=== PATIENT | male | born 1955 | race Caucasian/White ===

== ENCOUNTER 2018-03-19 09:34 | Outpatient (CLI) | payer OTHER, SELFPAY ==
[2018-03-19 13:17] LABS: Anion Gap 7.2 mmol/L (3-11); BUN 21 mg/dL (7-18); CO2 27.8 mmol/L (21.0-32.0); CREATININE 1.01 mg/dL (0.70-1.30); Calcium 8.9 mg/dL (8.5-10.1); Chloride 107 mmol/L (98-107); Glucose 95 mg/dL (70-100); Potassium 4.9 mmol/L (3.5-5.1); Sodium 142 mmol/L (136-145)
[2018-03-20 09:21] LABS: PSA, Screening 44.2 ng/ml (0-4.5)
== END 2018-03-19 09:54 ==
PROVIDERS: PCP Family Medicine; Visit Provider Family Medicine
DX: N13.8 Other obstructive and reflux uropathy (principal); N40.1 Benign prostatic hyperplasia with lower urinary tract symptoms; Z12.5 Encounter for screening for malignant neoplasm of prostate
CPT/HCPCS: 36415; 80048; 84153; 87086

== ENCOUNTER 2018-03-22 00:32 | Outpatient (CLI) | payer OTHER, SELFPAY ==
--- NOTE | 2018-03-22 08:13 | DI.US_ITS ---
SYMPTOM/DIAGNOSIS: BPH WITH OBSTRUCTIVE SYMPTOMS, ? URINARY OBSTRUCTION, LOWER URINARY TRACT SYMPTOMS, N40.1, BENIGN PROSTATIC HYPERPLASIA, N13.8, OBSTRUCTION , REFLUX RENAL ULTRASOUND: No priors for comparison. The right kidney measures 11.6 cm. long. No renal masses or calculi is identified. There is normal blood flow. There is mild dilatation of the right renal collecting system. This may represent extrarenal pelvis or mild hydronephrosis. The left kidney measures 10.7 cm long. No renal mass, calculus or obstruction is identified. The prevoid urinary bladder volume is 161 cc's. Multiple bladder stones were seen. There is debris seen within the urinary bladder. This may represent infectious material or hemorrhage. The ureteral jets were not visualized during this examination. Post void urinary bladder volume was 60 cc's. The prostate gland is enlarged measuring 171 cc's in volume. IMPRESSION: 1. Anechoic collection in the right renal pelvis. This may represent an extrarenal pelvis or mild hydronephrosis. Parapelvic cysts cannot be excluded. 2. Prostatic hypertrophy. Moderate post void bladder volume. 3. Multiple bladder stones with debris seen within the urinary bladder. This may represent infection or hemorrhage.
== END 2018-03-22 00:52 ==
PROVIDERS: PCP Family Medicine; Visit Provider Family Medicine
DX: N40.1 Benign prostatic hyperplasia with lower urinary tract symptoms (principal); N13.8 Other obstructive and reflux uropathy; N13.30 Unspecified hydronephrosis; R33.9 Retention of urine, unspecified; N21.0 Calculus in bladder
CPT/HCPCS: 76770

== ENCOUNTER 2018-07-04 09:49 | Outpatient (CLI) | payer OTHER, SELFPAY ==
[2018-07-04 10:27] LABS: HCT 30.6 % (40.0-50.0); HGB 10.3 g/dL (13.5-17.5); Mean Corp. HGB Concentration 33.7 g/dL (32.0-36.0); Mean Corpuscular Hemoglobin 31.3 pg (27.0-33.0); Mean Platelet Volume 9.7 fL (8.0-11.0); Platelet Count 494 x1000/uL (130-400); RBC 3.29 m/cumm (4.50-6.00); RBC Distribution Width 15.6 % (11.8-14.1); White Blood Cell Count 7.62 k/cumm (4.4-10.8)
[2018-07-04 10:43] LABS: ALT 100 U/L (12-78); AST 30 U/L (15-37); Albumin 3.1 g/dL (3.4-5.0); Alkaline Phosphatase 130 U/L (46-116); Anion Gap 13.4 mmol/L (3-11); BUN 18 mg/dL (7-18); Bilirubin, Total 0.3 mg/dL (0.2-1.0); CO2 23.6 mmol/L (21.0-32.0); CREATININE 1.08 mg/dL (0.70-1.30); Calcium 9.6 mg/dL (8.5-10.1); Chloride 104 mmol/L (98-107); Glucose 121 mg/dL (70-100); Potassium 3.3 mmol/L (3.5-5.1); Sodium 141 mmol/L (136-145); Total Protein 7.7 g/dL (6.4-8.2)
[2018-07-04 10:47] LABS: Absolute Lymphocyte Count 1.14 k/cumm (1.2-3.4); Absolute Neutrophil Count 5.11 k/cumm (1.2-6.7); Anisocytosis 1+; Diff Comment Manual Differential
[2018-07-04 10:48] LABS: Polychromasia Present
== END 2018-07-04 10:09 ==
PROVIDERS: PCP Family Medicine; Visit Provider Internal Medicine
DX: C92.00 Acute myeloblastic leukemia, not having achieved remission (principal)
CPT/HCPCS: 36415; 80053; 85025

== ENCOUNTER 2018-08-28 08:02 | Outpatient (CLI) | payer OTHER, SELFPAY ==
--- NOTE | 2018-08-28 13:53 | DI.US_ITS ---
SYMPTOMS/DIAGNOSIS: H/O DVT, NEW CRAMPING IN RIGHT CALF, I82.401, ON BLOOD THINNERS FOR A FEW DAYS RIGHT LOWER EXTREMITY ULTRASOUND: Comparison examinations are 05/11/2009 and 01/25/2010. There is hypoechoic thrombus seen in the right popliteal vein extending into the patient's paired posterior tibialis veins. The common femoral and femoral vein are patent and show normal compression and color flow. The saphenofemoral junction is unremarkable. There is hypoechoic thrombus seen in a superficial vein in the right lower extremity. IMPRESSION: 1. Right lower extremity deep venous thrombus from the popliteal vein extending into the patient's paired posterior tibialis veins. 2. Superficial thrombophlebitis.
== END 2018-08-28 08:22 ==
PROVIDERS: PCP Family Medicine; Visit Provider Internal Medicine
DX: R25.2 Cramp and spasm (principal); I82.431 Acute embolism and thrombosis of right popliteal vein; I82.441 Acute embolism and thrombosis of right tibial vein; I80.01 Phlebitis and thrombophlebitis of superficial vessels of right lower extremity
CPT/HCPCS: 93971

== ENCOUNTER 2018-08-29 01:11 | Outpatient (RCR) | payer OTHER, SELFPAY ==
[2018-08-05] MEDS: Normal Saline Flush 10 ML SYR IVP (10:20)
[2018-08-05] MEDS: Heparin 500 UNITS/5 ML SYRINGE IV (10:20)
[2018-08-05 10:24] LABS: Abs Immature Grans 0.01 k/cumm (0.0-0.09); Absolute Basophil Count 0.01 k/cumm (0.0-0.2); Absolute Eosinophil Count 0.12 k/cumm (0.0-0.7); Absolute Lymphocyte Count 0.36 k/cumm (1.2-3.4); Absolute Monocyte Count 0.04 k/cumm (0.11-0.7); Absolute Neutrophil Count 7.57 k/cumm (1.2-6.7); Basophils % 0.1; Eosinophils % 1.5; HCT 32.9 % (40.0-50.0); Immature Grans % 0.1; Lymphocytes % 4.4; Mean Corp. HGB Concentration 33.4 g/dL (32.0-36.0); Mean Corpuscular Hemoglobin 31.5 pg (27.0-33.0); Mean Corpuscular Volume 94.3 fL (80-95); Mean Platelet Volume 8.9 fL (8.0-11.0); Monocytes % 0.5; Neutrophils % 93.4; Platelet Count 174 x1000/uL (130-400); RBC 3.49 m/cumm (4.50-6.00); RBC Distribution Width 14.3 % (11.8-14.1); White Blood Cell Count 8.11 k/cumm (4.4-10.8)
[2018-08-05 10:40] LABS: ALT 58 U/L (12-78); AST 29 U/L (15-37); Albumin 3.6 g/dL (3.4-5.0); Alkaline Phosphatase 78 U/L (46-116); Anion Gap 11.6 mmol/L (3-11); BUN 34 mg/dL (7-18); CO2 25.4 mmol/L (21.0-32.0); CREATININE 1.22 mg/dL (0.70-1.30); Calcium 9.4 mg/dL (8.5-10.1); Chloride 106 mmol/L (98-107); Estimated GFR 59.99 (mL/min/1.73m2); Glucose 104 mg/dL (70-100); Potassium 3.3 mmol/L (3.5-5.1); Sodium 143 mmol/L (136-145); Total Protein 7.3 g/dL (6.4-8.2)
[2018-08-08] MEDS: Normal Saline Flush 10 ML SYR IVP (10:40)
[2018-08-08] MEDS: Heparin 500 UNITS/5 ML SYRINGE IV (10:40)
[2018-08-08 10:54] LABS: ALT 55 U/L (12-78); AST 30 U/L (15-37); Abs Immature Grans 0.01 k/cumm (0.0-0.09); Absolute Basophil Count 0.03 k/cumm (0.0-0.2); Absolute Lymphocyte Count 0.39 k/cumm (1.2-3.4); Absolute Monocyte Count 0.01 k/cumm (0.11-0.7); Absolute Neutrophil Count 2.02 k/cumm (1.2-6.7); Albumin 3.7 g/dL (3.4-5.0); Alkaline Phosphatase 99 U/L (46-116); Anion Gap 10.2 mmol/L (3-11); BUN 40 mg/dL (7-18); Basophils % 1.2; Bilirubin, Total 0.7 mg/dL (0.2-1.0); CO2 26.8 mmol/L (21.0-32.0); Calcium 9.8 mg/dL (8.5-10.1); Chloride 104 mmol/L (98-107); Eosinophils % 3.9; Estimated GFR 55.75 (mL/min/1.73m2); Glucose 102 mg/dL (70-100); HCT 33.8 % (40.0-50.0); HGB 10.9 g/dL (13.5-17.5); Immature Grans % 0.4; Lymphocytes % 15.2; Mean Corp. HGB Concentration 32.2 g/dL (32.0-36.0); Mean Corpuscular Hemoglobin 30.7 pg (27.0-33.0); Mean Corpuscular Volume 95.2 fL (80-95); Mean Platelet Volume 9.2 fL (8.0-11.0); Monocytes % 0.4; Neutrophils % 78.9; RBC 3.55 m/cumm (4.50-6.00); RBC Distribution Width 14.1 % (11.8-14.1); Sodium 141 mmol/L (136-145); Total Protein 7.6 g/dL (6.4-8.2); White Blood Cell Count 2.56 k/cumm (4.4-10.8)
[2018-08-08 11:40] LABS: Diff Comment PLT Morph Reviewed; Platelet Count 91 x1000/uL (130-400)
[2018-08-12] MEDS: Heparin 500 UNITS/5 ML SYRINGE IV (10:15)
[2018-08-12] MEDS: Normal Saline Flush 10 ML SYR IVP ×2 (10:15→18:59)
[2018-08-12 10:46] LABS: Absolute Basophil Count 0.02 k/cumm (0.0-0.2); Absolute Monocyte Count 0.02 k/cumm (0.11-0.7); HCT 30.4 % (40.0-50.0); HGB 10.1 g/dL (13.5-17.5); Mean Corp. HGB Concentration 33.2 g/dL (32.0-36.0); Mean Corpuscular Hemoglobin 31.2 pg (27.0-33.0); Mean Corpuscular Volume 93.8 fL (80-95); Monocytes % 2.5; RBC 3.24 m/cumm (4.50-6.00); RBC Distribution Width 13.5 % (11.8-14.1)
[2018-08-12 11:04] LABS: ALT 93 U/L (12-78); AST 55 U/L (15-37); Albumin 3.6 g/dL (3.4-5.0); Alkaline Phosphatase 111 U/L (46-116); Anion Gap 9.2 mmol/L (3-11); BUN 39 mg/dL (7-18); Bilirubin, Total 0.4 mg/dL (0.2-1.0); CO2 27.8 mmol/L (21.0-32.0); CREATININE 1.22 mg/dL (0.70-1.30); Chloride 105 mmol/L (98-107); Estimated GFR 59.99 (mL/min/1.73m2); Glucose 107 mg/dL (70-100); Potassium 3.9 mmol/L (3.5-5.1); Sodium 142 mmol/L (136-145); Total Protein 7.6 g/dL (6.4-8.2)
[2018-08-12 11:16] LABS: Absolute Eosinophil Count 0.03 k/cumm (0.0-0.7); Absolute Lymphocyte Count 0.49 k/cumm (1.2-3.4); Atypical Lymphocytes % 7
[2018-08-12 11:17] LABS: Diff Comment Manual Differential; RBC Morphology Normal
[2018-08-12 11:26] LABS: Absolute Neutrophil Count 0.28 k/cumm (1.2-6.7); Platelet Count 7 x1000/uL (130-400); White Blood Cell Count 0.81 k/cumm (4.4-10.8)
[2018-08-12 18:43] VITALS: BP 142/93; PULSE 78; RESP 18; TEMP 37
[2018-08-12 18:54] VITALS: BP 141/95; PULSE 75; RESP 18; TEMP 37
[2018-08-15] MEDS: Normal Saline Flush 10 ML SYR IVP (10:10)
[2018-08-15] MEDS: Heparin 500 UNITS/5 ML SYRINGE IV (10:10)
[2018-08-15 11:16] LABS: ALT 91 U/L (12-78); AST 50 U/L (15-37); Albumin 3.5 g/dL (3.4-5.0); Alkaline Phosphatase 110 U/L (46-116); BUN 35 mg/dL (7-18); Bilirubin, Total 0.3 mg/dL (0.2-1.0); CREATININE 1.11 mg/dL (0.70-1.30); Calcium 9.5 mg/dL (8.5-10.1); Chloride 106 mmol/L (98-107); Glucose 90 mg/dL (70-100); Potassium 3.9 mmol/L (3.5-5.1); Sodium 142 mmol/L (136-145); Total Protein 7.5 g/dL (6.4-8.2)
[2018-08-15 11:43] LABS: HCT 27.6 % (40.0-50.0); HGB 9.2 g/dL (13.5-17.5); Mean Corp. HGB Concentration 33.3 g/dL (32.0-36.0); Mean Corpuscular Hemoglobin 31.4 pg (27.0-33.0); Mean Corpuscular Volume 94.2 fL (80-95); RBC 2.93 m/cumm (4.50-6.00); RBC Distribution Width 13.2 % (11.8-14.1); White Blood Cell Count 0.65 k/cumm (4.4-10.8)
[2018-08-15 11:45] LABS: Absolute Lymphocyte Count 0.64 k/cumm (1.2-3.4); Absolute Monocyte Count 0.01 k/cumm (0.11-0.7); Mean Platelet Volume 10.4 fL (8.0-11.0); Platelet Count 30 x1000/uL (130-400)
[2018-08-15 11:46] LABS: Diff Comment Manual Differential; RBC Morphology Normal
[2018-08-19] MEDS: Normal Saline Flush 10 ML SYR IVP (10:17)
[2018-08-19] MEDS: Heparin 500 UNITS/5 ML SYRINGE IV (10:18)
[2018-08-19 10:33] LABS: HCT 26.2 % (40.0-50.0); HGB 8.9 g/dL (13.5-17.5); Mean Corpuscular Hemoglobin 31.3 pg (27.0-33.0); Mean Corpuscular Volume 92.3 fL (80-95); Mean Platelet Volume 10.1 fL (8.0-11.0); RBC 2.84 m/cumm (4.50-6.00); RBC Distribution Width 12.7 % (11.8-14.1)
[2018-08-19 10:40] LABS: ALT 86 U/L (12-78); AST 45 U/L (15-37); Albumin 3.3 g/dL (3.4-5.0); Alkaline Phosphatase 123 U/L (46-116); Anion Gap 9.7 mmol/L (3-11); BUN 27 mg/dL (7-18); Bilirubin, Total 0.2 mg/dL (0.2-1.0); CO2 27.3 mmol/L (21.0-32.0); CREATININE 1.06 mg/dL (0.70-1.30); Calcium 9.1 mg/dL (8.5-10.1); Chloride 105 mmol/L (98-107); Glucose 113 mg/dL (70-100); Potassium 3.7 mmol/L (3.5-5.1); Sodium 142 mmol/L (136-145); Total Protein 7.6 g/dL (6.4-8.2)
[2018-08-19 11:09] LABS: White Blood Cell Count 1.02 k/cumm (4.4-10.8)
[2018-08-19 11:10] LABS: Platelet Count 39 x1000/uL (130-400)
[2018-08-19 11:12] LABS: Absolute Neutrophil Count 0.01 k/cumm (1.2-6.7)
[2018-08-19 11:13] LABS: Absolute Monocyte Count 0.31 k/cumm (0.11-0.7); Atypical Lymphocytes % 1; Diff Comment Manual Differential; RBC Morphology Normal
[2018-08-22 10:57] LABS: Abs Immature Grans 0.06 k/cumm (0.0-0.09); HCT 24.5 % (40.0-50.0); HGB 8.3 g/dL (13.5-17.5); Mean Corp. HGB Concentration 33.9 g/dL (32.0-36.0); Mean Corpuscular Hemoglobin 31.4 pg (27.0-33.0); Mean Corpuscular Volume 92.8 fL (80-95); Mean Platelet Volume 9.7 fL (8.0-11.0); Platelet Count 138 x1000/uL (130-400); RBC 2.64 m/cumm (4.50-6.00); RBC Distribution Width 13.2 % (11.8-14.1); White Blood Cell Count 2.29 k/cumm (4.4-10.8)
[2018-08-22] MEDS: Heparin 500 UNITS/5 ML SYRINGE IV (10:58)
[2018-08-22] MEDS: Normal Saline Flush 10 ML SYR IVP (10:58)
[2018-08-22 11:26] LABS: ALT 68 U/L (12-78); AST 33 U/L (15-37); Absolute Monocyte Count 1.01 k/cumm (0.11-0.7); Albumin 3.1 g/dL (3.4-5.0); Alkaline Phosphatase 117 U/L (46-116); Anion Gap 8.6 mmol/L (3-11); Atypical Lymphocytes % 1; BUN 26 mg/dL (7-18); Bilirubin, Total 0.2 mg/dL (0.2-1.0); CO2 28.4 mmol/L (21.0-32.0); CREATININE 1.01 mg/dL (0.70-1.30); Calcium 9.4 mg/dL (8.5-10.1); Chloride 104 mmol/L (98-107); Glucose 119 mg/dL (70-100); Potassium 3.8 mmol/L (3.5-5.1); Sodium 141 mmol/L (136-145); Total Protein 7.1 g/dL (6.4-8.2)
[2018-08-22 11:28] LABS: Absolute Neutrophil Count 0.46 k/cumm (1.2-6.7)
[2018-08-22 11:30] LABS: Diff Comment Manual Differential
[2018-08-22 11:31] LABS: Polychromasia Present
[2018-08-26] MEDS: Normal Saline Flush 10 ML SYR IVP (10:32)
[2018-08-26] MEDS: Heparin 500 UNITS/5 ML SYRINGE IV (10:33)
[2018-08-26 10:37] LABS: HCT 26.1 % (40.0-50.0); HGB 8.7 g/dL (13.5-17.5); Mean Corp. HGB Concentration 33.3 g/dL (32.0-36.0); Mean Corpuscular Hemoglobin 31.4 pg (27.0-33.0); Mean Corpuscular Volume 94.2 fL (80-95); Mean Platelet Volume 9.1 fL (8.0-11.0); RBC 2.77 m/cumm (4.50-6.00); RBC Distribution Width 14.4 % (11.8-14.1); White Blood Cell Count 4.94 k/cumm (4.4-10.8)
[2018-08-26 10:49] LABS: ALT 44 U/L (12-78); AST 25 U/L (15-37); Albumin 3.1 g/dL (3.4-5.0); Alkaline Phosphatase 111 U/L (46-116); Anion Gap 11.4 mmol/L (3-11); BUN 25 mg/dL (7-18); Bilirubin, Total 0.2 mg/dL (0.2-1.0); CO2 25.6 mmol/L (21.0-32.0); CREATININE 1.08 mg/dL (0.70-1.30); Calcium 8.7 mg/dL (8.5-10.1); Chloride 104 mmol/L (98-107); Glucose 121 mg/dL (70-100); Potassium 3.8 mmol/L (3.5-5.1); Sodium 141 mmol/L (136-145); Total Protein 7.4 g/dL (6.4-8.2)
[2018-08-26 10:53] LABS: Absolute Lymphocyte Count 1.19 k/cumm (1.2-3.4); Absolute Monocyte Count 1.04 k/cumm (0.11-0.7); Absolute Neutrophil Count 2.72 k/cumm (1.2-6.7); Anisocytosis 1+; Basophilic Stippling Present; Diff Comment Manual Differential; Microcytosis 1+; Platelet Count 261 x1000/uL (130-400); Polychromasia Present
[2018-08-29 10:42] LABS: Abs Immature Grans 0.04 k/cumm (0.0-0.09); Absolute Basophil Count 0.01 k/cumm (0.0-0.2); Absolute Monocyte Count 0.98 k/cumm (0.11-0.7); Absolute Neutrophil Count 2.73 k/cumm (1.2-6.7); Basophils % 0.2; HCT 27.2 % (40.0-50.0); HGB 8.9 g/dL (13.5-17.5); Immature Grans % 0.8; Lymphocytes % 24.2; Mean Corp. HGB Concentration 32.7 g/dL (32.0-36.0); Mean Corpuscular Volume 94.8 fL (80-95); Monocytes % 19.8; Platelet Count 245 x1000/uL (130-400); RBC 2.87 m/cumm (4.50-6.00); RBC Distribution Width 15.3 % (11.8-14.1); White Blood Cell Count 4.96 k/cumm (4.4-10.8)
[2018-08-29] MEDS: Normal Saline Flush 10 ML SYR IVP (11:06)
[2018-08-29] MEDS: Heparin 500 UNITS/5 ML SYRINGE IV (11:06)
== END 2018-08-29 23:59 | disposition home or self-care (01) ==
LOC: INF 01:11
PROVIDERS: PCP Family Medicine; Visit Provider Internal Medicine
DX: C92.00 Acute myeloblastic leukemia, not having achieved remission (principal); Z45.2 Encounter for adjustment and management of vascular access device
CPT/HCPCS: 36430; 36591; 80053; 86850; 86900; 86901; 86945; 85025; P9035

== ENCOUNTER 2018-09-02 02:05 | Outpatient (RCR) | payer OTHER, SELFPAY | END 2018-09-29 23:59 | disposition home or self-care (01) | LOC: INF 02:05 | PROVIDERS: PCP Family Medicine; Visit Provider Internal Medicine | DX: R69 Illness, unspecified (principal) ==

== ENCOUNTER 2018-09-13 01:25 | Outpatient (CLI) | payer OTHER, SELFPAY ==
--- NOTE | 2018-09-13 12:56 | DI.US_ITS ---
SYMPTOMS/DIAGNOSIS: THYROID NODULE, E04.1, FOUND ON PREVIOUS STUDY THYROID ULTRASOUND: The right lobe measures 5.7 x 1.5 x 2.3 cm. The left lobe measures 5.5 x 1.4 x 1.9 cm. At the lower pole of the right lobe of the thyroid, there is a 1.3 x 1.4 x 1.7 cm solid nodule. It shows mildly lobulated borders and heterogeneous echotexture as well as vascularity. A coarse calcification is seen posteriorly. There are also punctate echogenic foci. A 6 mm circumscribed lesion is seen near the upper pole of the right lobe. At the upper pole of the left lobe, there is a mostly cystic, circumscribed lesion with a solid component containing vascularity. IMPRESSION: 1.7 cm heterogeneous nodule at the upper pole of the right lobe of the thyroid. FNA is recommended for further evaluation.
== END 2018-09-13 01:45 ==
PROVIDERS: PCP Family Medicine; Visit Provider Internal Medicine
DX: E04.1 Nontoxic single thyroid nodule (principal)
CPT/HCPCS: 76536

== ENCOUNTER 2018-10-21 00:59 | Outpatient (RCR) | payer OTHER, SELFPAY ==
[2018-09-30] MEDS: Heparin 500 UNITS/5 ML SYRINGE IV (10:05)
[2018-09-30] MEDS: Normal Saline Flush 10 ML SYR IVP (10:05)
[2018-09-30 10:27] LABS: Absolute Eosinophil Count 0.02 k/cumm (0.0-0.7); HCT 35.2 % (40.0-50.0); HGB 11.9 g/dL (13.5-17.5); Mean Corp. HGB Concentration 33.8 g/dL (32.0-36.0); Mean Corpuscular Hemoglobin 31.4 pg (27.0-33.0); Mean Corpuscular Volume 92.9 fL (80-95); Mean Platelet Volume 8.7 fL (8.0-11.0); RBC 3.79 m/cumm (4.50-6.00); RBC Distribution Width 13.7 % (11.8-14.1)
[2018-09-30 10:54] LABS: Absolute Neutrophil Count 0.49 k/cumm (1.2-6.7); Atypical Lymphocytes % 3
[2018-09-30 10:56] LABS: Diff Comment Manual Differential; Platelet Count 57 x1000/uL (130-400); RBC Morphology Normal
[2018-10-03] MEDS: Heparin 500 UNITS/5 ML SYRINGE IV (10:30)
[2018-10-03] MEDS: Normal Saline Flush 10 ML SYR IVP ×2 (10:30→16:30)
[2018-10-03 11:04] LABS: Absolute Monocyte Count 0.01 k/cumm (0.11-0.7); HCT 33.9 % (40.0-50.0); HGB 11.4 g/dL (13.5-17.5); Mean Corp. HGB Concentration 33.6 g/dL (32.0-36.0); Mean Corpuscular Volume 92.1 fL (80-95); RBC 3.68 m/cumm (4.50-6.00); RBC Distribution Width 13.6 % (11.8-14.1)
[2018-10-03 11:07] LABS: ALT 39 U/L (12-78); AST 23 U/L (15-37); Albumin 3.6 g/dL (3.4-5.0); Alkaline Phosphatase 84 U/L (46-116); BUN 39 mg/dL (7-18); Bilirubin, Total 0.2 mg/dL (0.2-1.0); CREATININE 1.13 mg/dL (0.70-1.30); Calcium 9.3 mg/dL (8.5-10.1); Chloride 105 mmol/L (98-107); Glucose 101 mg/dL (70-100); Potassium 3.9 mmol/L (3.5-5.1); Sodium 141 mmol/L (136-145)
[2018-10-03 11:37] LABS: White Blood Cell Count 0.65 k/cumm (4.4-10.8)
[2018-10-03 11:39] LABS: Absolute Eosinophil Count 0.02 k/cumm (0.0-0.7); Absolute Lymphocyte Count 0.49 k/cumm (1.2-3.4)
[2018-10-03 11:40] LABS: Absolute Neutrophil Count 0.14 k/cumm (1.2-6.7); Diff Comment Manual Differential
[2018-10-03 11:41] LABS: Platelet Count 9 x1000/uL (130-400); RBC Morphology Normal
[2018-10-03 15:51] VITALS: BP 132/85; PULSE 73; RESP 18; TEMP 36.2; O2SAT 99
[2018-10-03 16:04] VITALS: BP 140/86; PULSE 67; RESP 18; TEMP 36.5; O2SAT 100
[2018-10-07] MEDS: Normal Saline Flush 10 ML SYR IVP (10:05)
[2018-10-07 10:43] LABS: Absolute Eosinophil Count 0.02 k/cumm (0.0-0.7); Absolute Lymphocyte Count 0.44 k/cumm (1.2-3.4); Eosinophils % 4.3; HCT 32.9 % (40.0-50.0); HGB 11.3 g/dL (13.5-17.5); Lymphocytes % 95.7; Mean Corp. HGB Concentration 34.3 g/dL (32.0-36.0); Mean Corpuscular Volume 90.1 fL (80-95); Mean Platelet Volume 8.4 fL (8.0-11.0); RBC 3.65 m/cumm (4.50-6.00); RBC Distribution Width 13.1 % (11.8-14.1)
[2018-10-07 11:05] LABS: White Blood Cell Count 0.46 k/cumm (4.4-10.8)
[2018-10-07 11:06] LABS: Platelet Count 21 x1000/uL (130-400)
[2018-10-07 11:07] LABS: Diff Comment Agrees w/ Instrument; RBC Morphology Normal
[2018-10-10] MEDS: Heparin 500 UNITS/5 ML SYRINGE IV (09:10)
[2018-10-10] MEDS: Normal Saline Flush 10 ML SYR IVP ×2 (09:10→13:15)
[2018-10-10 09:21] VITALS: BP 140/86; PULSE 67; RESP 18; TEMP 36.5; O2SAT 100
[2018-10-10 10:03] LABS: Absolute Lymphocyte Count 0.33 k/cumm (1.2-3.4); HCT 31.5 % (40.0-50.0); HGB 10.7 g/dL (13.5-17.5); Mean Corpuscular Hemoglobin 30.5 pg (27.0-33.0); Mean Corpuscular Volume 89.7 fL (80-95); RBC 3.51 m/cumm (4.50-6.00); RBC Distribution Width 13.1 % (11.8-14.1)
[2018-10-10 10:17] LABS: ALT 54 U/L (12-78); AST 35 U/L (15-37); Albumin 3.5 g/dL (3.4-5.0); Alkaline Phosphatase 101 U/L (46-116); Anion Gap 11.5 mmol/L (3-11); BUN 25 mg/dL (7-18); Bilirubin, Total 0.2 mg/dL (0.2-1.0); CO2 24.5 mmol/L (21.0-32.0); CREATININE 1.29 mg/dL (0.70-1.30); Calcium 9.2 mg/dL (8.5-10.1); Chloride 103 mmol/L (98-107); Estimated GFR 56.25 (mL/min/1.73m2); Glucose 112 mg/dL (70-100); Potassium 3.8 mmol/L (3.5-5.1); Sodium 139 mmol/L (136-145); Total Protein 7.1 g/dL (6.4-8.2)
[2018-10-10 10:32] LABS: White Blood Cell Count 0.39 k/cumm (4.4-10.8)
[2018-10-10 10:33] LABS: Absolute Monocyte Count 0.06 k/cumm (0.11-0.7); Platelet Count 10 x1000/uL (130-400)
[2018-10-10 10:34] LABS: Diff Comment Manual Differential
[2018-10-10 13:49] VITALS: BP 136/56; PULSE 63; RESP 18; TEMP 36.4; O2SAT 97
[2018-10-10 14:32] VITALS: BP 130/81; PULSE 90; RESP 18; TEMP 36.8; O2SAT 97
[2018-10-10 14:51] VITALS: BP 145/93; PULSE 90; RESP 18; TEMP 36.5; O2SAT 98
[2018-10-14] MEDS: Normal Saline Flush 10 ML SYR IVP (10:05)
[2018-10-14 10:26] LABS: Abs Immature Grans 0.01 k/cumm (0.0-0.09); Absolute Lymphocyte Count 0.68 k/cumm (1.2-3.4); Absolute Monocyte Count 0.43 k/cumm (0.11-0.7); HCT 29.2 % (40.0-50.0); HGB 10.1 g/dL (13.5-17.5); Immature Grans % 0.7; Lymphocytes % 44.7; Mean Corp. HGB Concentration 34.6 g/dL (32.0-36.0); Mean Corpuscular Volume 89.6 fL (80-95); Monocytes % 28.3; Neutrophils % 26.3; RBC 3.26 m/cumm (4.50-6.00); RBC Distribution Width 13.2 % (11.8-14.1)
[2018-10-14 11:11] LABS: White Blood Cell Count 1.52 k/cumm (4.4-10.8)
[2018-10-14 11:12] LABS: Diff Comment Diff Reviewed; Platelet Count 56 x1000/uL (130-400); RBC Morphology Normal
[2018-10-14 11:20] VITALS: BP 145/93; PULSE 90; RESP 18; TEMP 36.5; O2SAT 98
[2018-10-17] MEDS: Normal Saline Flush 10 ML SYR IVP (10:30)
[2018-10-17 10:56] LABS: Abs Immature Grans 0.04 k/cumm (0.0-0.09); Absolute Lymphocyte Count 0.74 k/cumm (1.2-3.4); Absolute Monocyte Count 0.86 k/cumm (0.11-0.7); Absolute Neutrophil Count 1.09 k/cumm (1.2-6.7); HCT 29.2 % (40.0-50.0); HGB 9.9 g/dL (13.5-17.5); Immature Grans % 1.5; Lymphocytes % 27.1; Mean Corp. HGB Concentration 33.9 g/dL (32.0-36.0); Mean Corpuscular Hemoglobin 30.7 pg (27.0-33.0); Mean Corpuscular Volume 90.4 fL (80-95); Mean Platelet Volume 9.9 fL (8.0-11.0); Monocytes % 31.5; Neutrophils % 39.9; Platelet Count 122 x1000/uL (130-400); RBC 3.23 m/cumm (4.50-6.00); RBC Distribution Width 13.4 % (11.8-14.1); White Blood Cell Count 2.73 k/cumm (4.4-10.8)
[2018-10-17 12:20] VITALS: BP 145/93; PULSE 90; RESP 18; TEMP 36.5; O2SAT 98
[2018-10-21] MEDS: Normal Saline Flush 10 ML SYR IVP (10:15)
[2018-10-21] MEDS: Heparin 500 UNITS/5 ML SYRINGE IV (10:15)
[2018-10-21 10:38] LABS: Abs Immature Grans 0.02 k/cumm (0.0-0.09); Absolute Lymphocyte Count 0.69 k/cumm (1.2-3.4); Absolute Monocyte Count 0.69 k/cumm (0.11-0.7); Absolute Neutrophil Count 0.97 k/cumm (1.2-6.7); HCT 29.7 % (40.0-50.0); Immature Grans % 0.8; Lymphocytes % 29.1; Mean Corp. HGB Concentration 33.7 g/dL (32.0-36.0); Mean Corpuscular Hemoglobin 30.8 pg (27.0-33.0); Mean Corpuscular Volume 91.4 fL (80-95); Mean Platelet Volume 9.5 fL (8.0-11.0); Monocytes % 29.1; Platelet Count 194 x1000/uL (130-400); RBC 3.25 m/cumm (4.50-6.00); RBC Distribution Width 13.7 % (11.8-14.1); White Blood Cell Count 2.37 k/cumm (4.4-10.8)
[2018-10-21 10:55] LABS: Diff Comment Diff Reviewed; RBC Morphology Normal
== END 2018-10-29 23:59 | disposition home or self-care (01) ==
LOC: INF 00:59
PROVIDERS: PCP Family Medicine; Visit Provider Internal Medicine
DX: C92.00 Acute myeloblastic leukemia, not having achieved remission (principal); Z45.2 Encounter for adjustment and management of vascular access device
CPT/HCPCS: 36430; 36591; 80053; 86850; 86900; 86901; 86945; 85025; P9035

== ENCOUNTER 2018-11-11 00:54 | Outpatient (RCR) | payer OTHER, SELFPAY ==
[2018-11-11] MEDS: Normal Saline Flush 10 ML SYR IVP (09:32)
[2018-11-11] MEDS: Heparin 500 UNITS/5 ML SYRINGE IV (09:32)
[2018-11-11 09:46] LABS: Absolute Basophil Count 0.03 k/cumm (0.0-0.2); Absolute Eosinophil Count 0.04 k/cumm (0.0-0.7); Absolute Lymphocyte Count 0.85 k/cumm (1.2-3.4); Absolute Monocyte Count 0.44 k/cumm (0.11-0.7); Absolute Neutrophil Count 1.47 k/cumm (1.2-6.7); Basophils % 1.1; Eosinophils % 1.4; HCT 36.5 % (40.0-50.0); Mean Corp. HGB Concentration 32.9 g/dL (32.0-36.0); Mean Corpuscular Hemoglobin 30.8 pg (27.0-33.0); Mean Corpuscular Volume 93.8 fL (80-95); Monocytes % 15.5; Platelet Count 239 x1000/uL (130-400); RBC 3.89 m/cumm (4.50-6.00); RBC Distribution Width 16.2 % (11.8-14.1); White Blood Cell Count 2.83 k/cumm (4.4-10.8)
[2018-11-11 09:55] LABS: ALT 34 U/L (12-78); AST 22 U/L (15-37); Albumin 3.5 g/dL (3.4-5.0); Alkaline Phosphatase 69 U/L (46-116); Anion Gap 9.7 mmol/L (3-11); BUN 24 mg/dL (7-18); Bilirubin, Total 0.5 mg/dL (0.2-1.0); CO2 25.3 mmol/L (21.0-32.0); CREATININE 0.94 mg/dL (0.70-1.30); Chloride 105 mmol/L (98-107); Glucose 82 mg/dL (70-100); Potassium 3.7 mmol/L (3.5-5.1); Sodium 140 mmol/L (136-145); Total Protein 6.8 g/dL (6.4-8.2)
[2018-11-11 10:04] LABS: Anisocytosis 1+; Diff Comment Manual Differential; Microcytosis 1+; Polychromasia Present
[2018-11-11 10:05] LABS: Poikilocytes 2+
== END 2018-11-29 23:59 | disposition home or self-care (01) ==
LOC: INF 00:54
PROVIDERS: PCP Family Medicine; Visit Provider Internal Medicine
DX: C92.00 Acute myeloblastic leukemia, not having achieved remission (principal); Z45.2 Encounter for adjustment and management of vascular access device
CPT/HCPCS: 36591; 80053; 85025

== ENCOUNTER 2019-04-28 01:59 | Outpatient (RCR) | payer OTHER, SELFPAY ==
[2019-04-07 10:54] LABS: Magnesium 1.5 mg/dL (1.8-2.4)
[2019-04-07] MEDS: MAGNESIUM SULFATE 1 GM/100 ML BAG IVPB (11:29)
[2019-04-07] MEDS: Normal Saline Flush 10 ML SYR IVP (11:33)
[2019-04-07] MEDS: Heparin 500 UNITS/5 ML SYRINGE IV (11:34)
[2019-04-14 10:46] LABS: Magnesium 1.4 mg/dL (1.8-2.4)
[2019-04-14] MEDS: Heparin 500 UNITS/5 ML SYRINGE IV (11:17)
[2019-04-14] MEDS: MAGNESIUM SULFATE 1 GM/100 ML BAG IVPB (11:17)
[2019-04-14] MEDS: Normal Saline Flush 10 ML SYR IVP (11:17)
[2019-04-21] MEDS: Normal Saline Flush 10 ML SYR IVP ×2 (10:27→11:59)
[2019-04-21 10:41] LABS: Magnesium 1.3 mg/dL (1.8-2.4)
[2019-04-21] MEDS: MAGNESIUM SULFATE 1 GM/100 ML BAG IVPB (11:09)
[2019-04-21] MEDS: Heparin 500 UNITS/5 ML SYRINGE IV (11:59)
[2019-04-28 10:40] LABS: Magnesium 1.5 mg/dL (1.8-2.4)
[2019-04-28] MEDS: MAGNESIUM SULFATE 1 GM/100 ML BAG IVPB (10:57)
[2019-04-28] MEDS: Normal Saline Flush 10 ML SYR IVP (11:04)
[2019-04-28] MEDS: Heparin 500 UNITS/5 ML SYRINGE IV (11:05)
== END 2019-05-01 23:59 | disposition home or self-care (01) ==
LOC: INF 01:59
PROVIDERS: Internal Medicine; PCP Family Medicine; Visit Provider Internal Medicine
DX: C92.01 Acute myeloblastic leukemia, in remission (principal); E83.42 Hypomagnesemia; Z94.81 Bone marrow transplant status; Z45.2 Encounter for adjustment and management of vascular access device
CPT/HCPCS: 36591; 96365; 96366; 83735; J3475

== ENCOUNTER 2019-05-26 02:49 | Outpatient (RCR) | payer OTHER, SELFPAY ==
[2019-05-05 10:43] LABS: Magnesium 1.4 mg/dL (1.8-2.4)
[2019-05-05] MEDS: MAGNESIUM SULFATE 1 GM/100 ML BAG IVPB (11:34)
[2019-05-05] MEDS: Normal Saline Flush 10 ML SYR IVP (11:35)
[2019-05-05] MEDS: Heparin 500 UNITS/5 ML SYRINGE IV (12:35)
[2019-05-12 10:30] VITALS: BP 100/71; PULSE 100; RESP 18; TEMP 36.8; O2SAT 98
[2019-05-12] MEDS: Normal Saline Flush 10 ML SYR IVP (10:37)
[2019-05-12] MEDS: Lactated Ringers 1,000 ML 500 ML IV (10:38)
[2019-05-12] MEDS: Heparin 500 UNITS/5 ML SYRINGE IV (10:38)
[2019-05-12 10:44] LABS: Abs Immature Grans 0.04 k/cumm (0.0-0.09); HCT 31.2 % (40.0-50.0); HGB 10.3 g/dL (13.5-17.5); Mean Corpuscular Hemoglobin 35.6 pg (27.0-33.0); Mean Platelet Volume 9.2 fL (8.0-11.0); Platelet Count 167 x1000/uL (130-400); RBC 2.89 m/cumm (4.50-6.00); RBC Distribution Width 16.1 % (11.8-14.1); White Blood Cell Count 2.39 k/cumm (4.4-10.8)
[2019-05-12 11:04] LABS: Absolute Lymphocyte Count 0.74 k/cumm (1.2-3.4); Absolute Monocyte Count 0.74 k/cumm (0.11-0.7); Absolute Neutrophil Count 0.88 k/cumm (1.2-6.7); Anisocytosis 1+; Atypical Lymphocytes % 3; Diff Comment Manual Differential; Macrocytosis 2+; Polychromasia Present
[2019-05-12 11:06] LABS: ALT 35 U/L (16-63); AST 32 U/L (15-37); Albumin 3.3 g/dL (3.4-5.0); Alkaline Phosphatase 104 U/L (46-116); Anion Gap 10.4 mmol/L (3-11); BUN 52 mg/dL (7-18); Bilirubin, Total 0.3 mg/dL (0.2-1.0); CO2 24.6 mmol/L (21.0-32.0); CREATININE 3.17 mg/dL (0.70-1.30); Calcium 9.4 mg/dL (8.5-10.1); Chloride 106 mmol/L (98-107); Estimated GFR 19.93 (mL/min/1.73m2); Glucose 146 mg/dL (70-100); Magnesium 1.8 mg/dL (1.8-2.4); Potassium 4.7 mmol/L (3.5-5.1); Sodium 141 mmol/L (136-145); Total Protein 7.2 g/dL (6.4-8.2)
[2019-05-14] MEDS: Lactated Ringers 1,000 ML 500 ML IV (10:35)
[2019-05-14] MEDS: Normal Saline Flush 10 ML SYR IVP (11:04)
[2019-05-14] MEDS: Heparin 500 UNITS/5 ML SYRINGE IV (11:05)
[2019-05-14 11:06] LABS: ALT 37 U/L (16-63); AST 32 U/L (15-37); Albumin 3.2 g/dL (3.4-5.0); Alkaline Phosphatase 102 U/L (46-116); Anion Gap 9.9 mmol/L (3-11); BUN 35 mg/dL (7-18); Bilirubin, Total 0.2 mg/dL (0.2-1.0); CO2 25.1 mmol/L (21.0-32.0); CREATININE 2.08 mg/dL (0.70-1.30); Calcium 9.3 mg/dL (8.5-10.1); Chloride 106 mmol/L (98-107); Estimated GFR 32.41 (mL/min/1.73m2); Glucose 118 mg/dL (70-100); Magnesium 1.6 mg/dL (1.8-2.4); Potassium 4.5 mmol/L (3.5-5.1); Sodium 141 mmol/L (136-145); Total Protein 7.2 g/dL (6.4-8.2)
[2019-05-14] MEDS: MAGNESIUM SULFATE 1 GM/100 ML BAG IVPB (12:07)
[2019-05-19 10:42] LABS: Magnesium 1.6 mg/dL (1.8-2.4)
[2019-05-19] MEDS: Heparin 500 UNITS/5 ML SYRINGE IV (11:05)
[2019-05-19] MEDS: MAGNESIUM SULFATE 1 GM/100 ML BAG IVPB (11:05)
[2019-05-19] MEDS: Normal Saline Flush 10 ML SYR IVP (11:05)
[2019-05-19 11:42] LABS: ALT 46 U/L (16-63); AST 34 U/L (15-37); Albumin 3.3 g/dL (3.4-5.0); Alkaline Phosphatase 128 U/L (46-116); BUN 27 mg/dL (7-18); Bilirubin, Total 0.3 mg/dL (0.2-1.0); CREATININE 1.66 mg/dL (0.70-1.30); Calcium 9.3 mg/dL (8.5-10.1); Chloride 106 mmol/L (98-107); Estimated GFR 42.05 (mL/min/1.73m2); Glucose 129 mg/dL (70-100); Potassium 4.5 mmol/L (3.5-5.1); Sodium 142 mmol/L (136-145); Total Protein 7.2 g/dL (6.4-8.2)
[2019-05-26] MEDS: Normal Saline Flush 10 ML SYR IVP (10:29)
[2019-05-26] MEDS: Heparin 500 UNITS/5 ML SYRINGE IV (10:30)
[2019-05-26 11:04] LABS: Magnesium 1.6 mg/dL (1.8-2.4)
[2019-05-26] MEDS: MAGNESIUM SULFATE 1 GM/100 ML BAG IVPB (11:17)
== END 2019-05-31 23:59 | disposition home or self-care (01) ==
LOC: INF 02:49
PROVIDERS: PCP Family Medicine; Visit Provider Internal Medicine
DX: C92.01 Acute myeloblastic leukemia, in remission (principal); Z94.81 Bone marrow transplant status
CPT/HCPCS: 36591; 80053; 96360; 96361; 96365; 96366; 83735; 85025; J3475

== ENCOUNTER 2019-06-30 01:05 | Outpatient (RCR) | payer OTHER, SELFPAY ==
[2019-06-02] MEDS: Normal Saline Flush 10 ML SYR IVP (10:45)
[2019-06-02 11:09] LABS: Abs Immature Grans 0.03 k/cumm (0.0-0.09); Absolute Basophil Count 0.02 k/cumm (0.0-0.2); Absolute Eosinophil Count 0.09 k/cumm (0.0-0.7); Absolute Lymphocyte Count 1.33 k/cumm (1.2-3.4); Absolute Monocyte Count 0.89 k/cumm (0.11-0.7); Absolute Neutrophil Count 2.87 k/cumm (1.2-6.7); Basophils % 0.4; Eosinophils % 1.7; HCT 30.9 % (40.0-50.0); HGB 10.2 g/dL (13.5-17.5); Immature Grans % 0.6; Lymphocytes % 25.4; Mean Corpuscular Hemoglobin 36.2 pg (27.0-33.0); Mean Corpuscular Volume 109.6 fL (80-95); Mean Platelet Volume 9.5 fL (8.0-11.0); Neutrophils % 54.9; Platelet Count 241 x1000/uL (130-400); RBC 2.82 m/cumm (4.50-6.00); RBC Distribution Width 13.8 % (11.8-14.1); White Blood Cell Count 5.23 k/cumm (4.4-10.8)
[2019-06-02 11:19] LABS: Diff Comment RBC Morph Reviewed; Macrocytosis 2+; Polychromasia Present
[2019-06-02] MEDS: Heparin 500 UNITS/5 ML SYRINGE IV (11:20)
[2019-06-02 11:23] LABS: Magnesium 1.8 mg/dL (1.8-2.4)
[2019-06-09 11:24] LABS: Magnesium 1.9 mg/dL (1.8-2.4)
[2019-06-09] MEDS: Heparin 500 UNITS/5 ML SYRINGE IV (11:34)
[2019-06-09] MEDS: Normal Saline Flush 10 ML SYR IVP (11:34)
[2019-06-16] MEDS: Normal Saline Flush 10 ML SYR IVP (10:26)
[2019-06-16] MEDS: Heparin 500 UNITS/5 ML SYRINGE IV (10:27)
[2019-06-16 10:37] LABS: Magnesium 1.9 mg/dL (1.8-2.4)
[2019-06-23 10:47] LABS: Magnesium 1.8 mg/dL (1.8-2.4)
[2019-06-23] MEDS: Normal Saline Flush 10 ML SYR IVP (10:56)
[2019-06-23] MEDS: Heparin 500 UNITS/5 ML SYRINGE IV (10:56)
[2019-06-30 10:50] LABS: Magnesium 1.8 mg/dL (1.8-2.4)
[2019-06-30] MEDS: Normal Saline Flush 10 ML SYR IVP (11:06)
[2019-06-30] MEDS: Heparin 500 UNITS/5 ML SYRINGE IV (11:06)
== END 2019-07-01 23:59 | disposition home or self-care (01) ==
LOC: INF 01:05
PROVIDERS: Internal Medicine; PCP Family Medicine; Visit Provider Internal Medicine
DX: C92.01 Acute myeloblastic leukemia, in remission (principal); Z94.81 Bone marrow transplant status; Z45.2 Encounter for adjustment and management of vascular access device
CPT/HCPCS: 36591; 83735; 85025

== ENCOUNTER 2019-07-28 01:54 | Outpatient (RCR) | payer OTHER, SELFPAY ==
[2019-07-07] MEDS: Heparin 500 UNITS/5 ML SYRINGE IV (10:56)
[2019-07-07] MEDS: Normal Saline Flush 10 ML SYR IVP (10:56)
[2019-07-07 11:16] LABS: Magnesium 1.9 mg/dL (1.8-2.4)
[2019-07-14] MEDS: Heparin 500 UNITS/5 ML SYRINGE IV (10:36)
[2019-07-14] MEDS: Normal Saline Flush 10 ML SYR IVP (10:36)
[2019-07-14 10:50] LABS: Magnesium 1.5 mg/dL (1.8-2.4)
[2019-07-14] MEDS: MAGNESIUM SULFATE 1 GM/100 ML BAG IV (11:11)
[2019-07-21 11:00] LABS: Magnesium 1.5 mg/dL (1.8-2.4)
[2019-07-21] MEDS: Normal Saline Flush 10 ML SYR IVP (11:19)
[2019-07-21] MEDS: MAGNESIUM SULFATE 1 GM/100 ML BAG IV (11:19)
[2019-07-21] MEDS: Heparin 500 UNITS/5 ML SYRINGE IV (11:20)
[2019-07-28 10:50] LABS: Magnesium 1.6 mg/dL (1.8-2.4)
[2019-07-28] MEDS: Heparin 500 UNITS/5 ML SYRINGE IV (11:19)
[2019-07-28] MEDS: Normal Saline Flush 10 ML SYR IVP (11:19)
[2019-07-28] MEDS: MAGNESIUM SULFATE 1 GM/100 ML BAG IV (11:19)
== END 2019-08-01 23:59 | disposition home or self-care (01) ==
LOC: INF 01:54
PROVIDERS: Internal Medicine; PCP Family Medicine; Visit Provider Internal Medicine
DX: C92.01 Acute myeloblastic leukemia, in remission (principal); Z94.81 Bone marrow transplant status; E83.42 Hypomagnesemia
CPT/HCPCS: 36591; 96365; 83735; J3475

== ENCOUNTER 2019-08-18 02:27 | Outpatient (RCR) | payer OTHER, SELFPAY | END 2019-08-30 23:59 | disposition home or self-care (01) | LOC: INF 02:27 | PROVIDERS: PCP Family Medicine; Visit Provider Internal Medicine | DX: C92.01 Acute myeloblastic leukemia, in remission (principal) ==

== ENCOUNTER 2019-10-13 14:58 | Outpatient (RCR) | payer OTHER, SELFPAY ==
[2019-10-13] MEDS: Normal Saline Flush 10 ML SYR 30 ML IVP (15:30)
[2019-10-13] MEDS: Heparin 500 UNITS/5 ML SYRINGE IVP (15:30)
[2019-10-13 16:05] LABS: Abs Immature Grans 0.02 k/cumm (0.0-0.09); Absolute Basophil Count 0.03 k/cumm (0.0-0.2); Absolute Eosinophil Count 0.22 k/cumm (0.0-0.7); Absolute Lymphocyte Count 3.21 k/cumm (1.2-3.4); Absolute Neutrophil Count 2.87 k/cumm (1.2-6.7); Basophils % 0.4; HCT 38.4 % (40.0-50.0); HGB 12.7 g/dL (13.5-17.5); Immature Grans % 0.3 %; Lymphocytes % 43.7; Mean Corp. HGB Concentration 33.1 g/dL (32.0-36.0); Mean Corpuscular Hemoglobin 31.4 pg (27.0-33.0); Mean Platelet Volume 9.5 fL (8.0-11.0); Monocytes % 13.6; Platelet Count 378 x1000/uL (130-400); RBC 4.04 m/cumm (4.50-6.00); RBC Distribution Width 13.2 % (11.8-14.1); White Blood Cell Count 7.35 k/cumm (4.4-10.8)
[2019-10-13 16:24] LABS: ALT 46 U/L (16-63); AST 28 U/L (15-37); Albumin 3.3 g/dL (3.4-5.0); Alkaline Phosphatase 162 U/L (46-116); Anion Gap 9.5 mmol/L (3-11); BUN 44 mg/dL (7-18); Bilirubin, Total 0.3 mg/dL (0.2-1.0); CO2 26.5 mmol/L (21.0-32.0); CREATININE 1.72 mg/dL (0.70-1.30); Calcium 9.7 mg/dL (8.5-10.1); Chloride 105 mmol/L (98-107); Estimated GFR 40.23 (mL/min/1.73m2); Glucose 103 mg/dL (74-106); LDH 188 U/L (85-227); Magnesium 1.7 mg/dL (1.8-2.4); Potassium 4.1 mmol/L (3.5-5.1); Sodium 141 mmol/L (136-145); Total Protein 7.6 g/dL (6.4-8.2)
== END 2019-10-30 23:59 | disposition home or self-care (01) ==
LOC: INF 14:58
PROVIDERS: PCP Family Medicine; Visit Provider Internal Medicine
DX: Z94.81 Bone marrow transplant status (principal); Z45.2 Encounter for adjustment and management of vascular access device
CPT/HCPCS: 36591; 80053; 83615; 83735; 85025

== ENCOUNTER 2019-10-30 11:43 | Outpatient (RCR) | payer OTHER, SELFPAY | END 2019-10-30 23:59 | disposition home or self-care (01) | LOC: INF 11:43 | PROVIDERS: PCP Family Medicine; Visit Provider Internal Medicine | DX: Z94.81 Bone marrow transplant status (principal) ==

== ENCOUNTER 2019-10-31 04:33 | Outpatient (RCR) | payer OTHER, SELFPAY ==
[2019-10-30] MEDS: Normal Saline Flush 10 ML SYR IVP (15:03)
[2019-10-30] MEDS: Heparin 500 UNITS/5 ML SYRINGE IV (15:03)
[2019-10-30 15:13] LABS: Abs Immature Grans 0.01 k/cumm (0.0-0.09); Absolute Basophil Count 0.03 k/cumm (0.0-0.2); Absolute Lymphocyte Count 2.33 k/cumm (1.2-3.4); Absolute Monocyte Count 0.77 k/cumm (0.11-0.7); Absolute Neutrophil Count 2.09 k/cumm (1.2-6.7); Basophils % 0.6; Eosinophils % 3.7; HCT 35.7 % (40.0-50.0); HGB 12.1 g/dL (13.5-17.5); Immature Grans % 0.2 %; Lymphocytes % 42.9; Mean Corp. HGB Concentration 33.9 g/dL (32.0-36.0); Mean Corpuscular Hemoglobin 32.2 pg (27.0-33.0); Mean Corpuscular Volume 94.9 fL (80-95); Mean Platelet Volume 9.8 fL (8.0-11.0); Monocytes % 14.2; Neutrophils % 38.4; Platelet Count 273 x1000/uL (130-400); RBC 3.76 m/cumm (4.50-6.00); White Blood Cell Count 5.43 k/cumm (4.4-10.8)
[2019-10-30 16:17] LABS: ALT 29 U/L (16-63); AST 29 U/L (15-37); Albumin 3.5 g/dL (3.4-5.0); Alkaline Phosphatase 143 U/L (46-116); Anion Gap 10.3 mmol/L (3-11); BUN 38 mg/dL (7-18); Bilirubin, Total 0.3 mg/dL (0.2-1.0); CO2 25.7 mmol/L (21.0-32.0); CREATININE 1.79 mg/dL (0.70-1.30); Calcium 9.1 mg/dL (8.5-10.1); Chloride 104 mmol/L (98-107); Estimated GFR 38.42 (mL/min/1.73m2); Glucose 112 mg/dL (74-106); Potassium 3.8 mmol/L (3.5-5.1); Sodium 140 mmol/L (136-145); Total Protein 7.2 g/dL (6.4-8.2)
[2019-10-31] MEDS: Alteplase 2 MG VIAL IJ ×2 (13:28)
[2019-10-31] MEDS: Normal Saline Flush 10 ML SYR IVP (13:29)
[2019-10-31] MEDS: Water,Injection,Sterile 10 ML VIAL IJ ×2 (13:29)
[2019-10-31] MEDS: Heparin 500 UNITS/5 ML SYRINGE IV (13:30)
== END 2019-10-31 23:59 | disposition home or self-care (01) ==
LOC: INF 04:33
PROVIDERS: PCP Family Medicine; Visit Provider Internal Medicine
DX: Z94.81 Bone marrow transplant status (principal); Z45.2 Encounter for adjustment and management of vascular access device
CPT/HCPCS: 36415; 80053; 96523; 85025; J2997

== ENCOUNTER 2020-02-03 01:44 | Outpatient (CLI) | payer OTHER, SELFPAY ==
[2020-02-03 12:39] LABS: Abs Immature Grans 0.03 10^3/uL (0.0-0.06); Absolute Basophil Count 0.06 10^3/uL (0.0-0.2); Absolute Monocyte Count 1.06 10^3/uL (0.1-0.8); Basophils % 0.5; Eosinophils % 2.1; HCT 35.4 % (40.0-50.0); HGB 11.8 g/dL (13.5-17.5); Immature Grans % 0.3; Lymphocytes % 37.7; MCH 31.8 pg (27.0-33.0); MCHC 33.3 % (32.0-36.0); MCV 95.4 fL (80-95); MPV 9.7 fL (8.0-11.0); Monocytes % 9.1; Neutrophils % 50.3; Nucleated RBC 0 %; Platelet Count 288 10^3/uL (130-400); RBC 3.71 10^6/uL (4.36-5.78); RDW 13.5 % (11.8-14.1); RDW-SD 47.8 fL; WBC 11.63 10^3/uL (4.4-10.8)
[2020-02-03 12:41] LABS: Absolute Eosinophil Count 0.24 10^3/uL (0.0-0.7); Absolute Lymphocyte Count 4.38 10^3/uL (1.2-3.4); Absolute Neutrophil Count 5.85 10^3/uL (1.2-6.7)
[2020-02-03 13:08] LABS: ALT 31 U/L (16-63); AST 19 U/L (15-37); Albumin 3.5 g/dL (3.4-5.0); Alkaline Phosphatase 141 U/L (46-116); Anion Gap 11.1 mmol/L (3-11); BUN 26 mg/dL (7-18); Bilirubin, Total 0.2 mg/dL (0.2-1.0); CO2 23.9 mmol/L (21.0-32.0); CREATININE 1.54 mg/dL (0.70-1.30); Calcium 9.1 mg/dL (8.5-10.1); Chloride 108 mmol/L (98-107); Estimated GFR 45.71 (mL/min/1.73m2); Glucose 77 mg/dL (74-106); Potassium 3.8 mmol/L (3.5-5.1); Sodium 143 mmol/L (136-145); Total Protein 6.8 g/dL (6.4-8.2)
== END 2020-02-03 02:04 ==
PROVIDERS: PCP Family Medicine; Visit Provider Family Medicine
DX: N18.9 Chronic kidney disease, unspecified (principal)
CPT/HCPCS: 36415; 80053; 85025

== ENCOUNTER 2020-04-29 11:13 | Outpatient (REF) | payer OTHER, SELFPAY ==
--- NOTE | 2020-04-29 09:35 | SKI_PTH ---
PATIENT: Nacho Swan LOC: [facility] U#:[id number] AGE/SX: 64/M ROOM: RE04/29/[address]: Carito Cuello MD : 1955 BED: DIS: 04/29/2020 SPEC #: [id number] RECD: 04/29/20 11:36 STATUS: [facility]AN REQ #: [id number] BERENICE: 04/29/20 09:[address]: Carito Cuello DEPT: Surgical Specimen RECD BY: Dara Juárez ENTERED: 04/29/20 11:37 SP TYPE: DIEGO BARDALES DR: Solomon Atwood MD Tissues: 1 - SKIN BIOPSY(SHAVE/PUNCH) 2 - SKIN BIOPSY(SHAVE/PUNCH) Procedures: SKIN LEVEL 4 Comments: [id number] ([facility]#)
== END 2020-04-29 11:33 ==
LOC: LBN 11:13
PROVIDERS: PCP Family Medicine; Visit Provider Surgery
DX: C44.41 Basal cell carcinoma of skin of scalp and neck (principal)
CPT/HCPCS: 88305

== ENCOUNTER 2020-07-19 10:25 | Outpatient (CLI) | payer OTHER, SELFPAY ==
[2020-07-19 13:24] LABS: Abs Immature Grans 0.01 10^3/uL (0.0-0.06); Absolute Basophil Count 0.05 10^3/uL (0.0-0.2); Absolute Eosinophil Count 0.19 10^3/uL (0.0-0.7); Absolute Lymphocyte Count 5.26 10^3/uL (1.2-3.4); Absolute Monocyte Count 0.71 10^3/uL (0.1-0.8); Absolute Neutrophil Count 3.67 10^3/uL (1.2-6.7); Basophils % 0.5; Eosinophils % 1.9; HCT 37.4 % (40.0-50.0); HGB 12.4 g/dL (13.5-17.5); Immature Grans % 0.1; Lymphocytes % 53.2; MCH 29.8 pg (27.0-33.0); MCHC 33.2 % (32.0-36.0); MCV 89.9 fL (80-95); MPV 9.4 fL (8.0-11.0); Monocytes % 7.2; Neutrophils % 37.1; Nucleated RBC 0 %; Platelet Count 219 10^3/uL (130-400); RBC 4.16 10^6/uL (4.36-5.78); RDW 13.3 % (11.8-14.1); RDW-SD 43.8 fL; WBC 9.89 10^3/uL (4.4-10.8)
[2020-07-19 13:33] LABS: ALT 34 U/L (16-63); AST 24 U/L (15-37); Albumin 3.7 g/dL (3.4-5.0); Alkaline Phosphatase 105 U/L (46-116); Anion Gap 6.5 mmol/L (3-11); BUN 28 mg/dL (7-18); Bilirubin, Total 0.4 mg/dL (0.2-1.0); CO2 27.5 mmol/L (21.0-32.0); Calcium 9.1 mg/dL (8.5-10.1); Chloride 105 mmol/L (98-107); Estimated GFR 40.65 (mL/min/1.73m2); Glucose 93 mg/dL (74-106); Sodium 139 mmol/L (136-145); Total Protein 7.3 g/dL (6.4-8.2)
[2020-07-19 13:43] LABS: Diff Comment Agrees w/ Instrument; RBC Morphology Normal
== END 2020-07-19 10:45 ==
PROVIDERS: PCP Family Medicine; Visit Provider Internal Medicine
DX: Z94.81 Bone marrow transplant status (principal)
CPT/HCPCS: 36415; 80053; 85025

== ENCOUNTER 2020-10-19 20:12 | Inpatient (IN) | payer OTHER, SELFPAY ==
[2020-10-19 20:59] VITALS: BP 150/82; PULSE 56; RESP 16; TEMP 37.2; O2SAT 99
[2020-10-19 21:35] LABS: Abs Immature Grans 0.01 10^3/uL (0.0-0.06); Absolute Basophil Count 0.04 10^3/uL (0.0-0.2); Absolute Eosinophil Count 0.16 10^3/uL (0.0-0.7); Absolute Lymphocyte Count 4.34 10^3/uL (1.2-3.4); Absolute Monocyte Count 0.72 10^3/uL (0.1-0.8); Absolute Neutrophil Count 2.77 10^3/uL (1.2-6.7); Basophils % 0.5; HCT 39.8 % (40.0-50.0); HGB 13.3 g/dL (13.5-17.5); Immature Grans % 0.1; MCHC 33.4 % (32.0-36.0); MCV 89.8 fL (80-95); MPV 9.4 fL (8.0-11.0); Neutrophils % 34.4; Nucleated RBC 0 %; Platelet Count 203 10^3/uL (130-400); RBC 4.43 10^6/uL (4.36-5.78); RDW 12.9 % (11.8-14.1); RDW-SD 43.3 fL; WBC 8.04 10^3/uL (4.4-10.8)
[2020-10-19 21:41] LABS: Anion Gap 11.2 mmol/L (3-11); BUN 31 mg/dL (7-18); CO2 24.8 mmol/L (21.0-32.0); CREATININE 1.6 mg/dL (0.70-1.30); Chloride 103 mmol/L (98-107); Glucose 99 mg/dL (74-106); Potassium 3.8 mmol/L (3.5-5.1); Sodium 139 mmol/L (136-145)
[2020-10-19] MEDS: ACYCLOVIR SODIUM 700 MG in Normal Saline 250 ML 250 MG IVPB (22:34)
[2020-10-19 22:45] VITALS: BP 154/82; PULSE 89; O2SAT 96
--- NOTE | 2020-10-19 23:18 | W.ED.GENAD ---
Discharge Plan Disposition Patient Disposition: [facility] INPATIENT Condition: Serious Discharge Details Chief Complaint: Urinary Clinical Impression: Acute urinary retention, Herpes zoster Primary Care Provider: Solomon Atwood ED Provider: Kyle Finley Home Meds and New Rx's Prescriptions: No Action valacyclovir 1 gram tablet 1,000 mg PO TID Qty: 21 RF: 0 gabapentin 300 mg capsule 300 mg PO TID PRN (Reason: shingles) Qty: 30 RF: 0 Eliquis 5 mg tablet 5 mg PO BID RF: 0 cholecalciferol (vitamin D3) 125 mcg (5,000 unit) tablet 125 mcg PO DAILY RF: 0 multivitamin Tablet 1 tab PO DAILY RF: 0 zonisamide [Zonegran] 100 mg capsule 200 mg PO HS Qty: 180 RF: 3 Medical Decision Making 65-year-old male with prior history of prostatic hypertrophy status post TURP, AML status post bone marrow transplant, here with herpes zoster of the right buttock and scrotum, now with urinary retention refractory to attempted Lemon placement at [facility]. Lemon catheter not draining and not in bladder per nursing. Not able to advance. Catheter removed and replaced with coud? catheter successfully and patient had immediate significant urinary output of about 1000 mL. I called and spoke with oncology seed cone picker at [facility] and discussed ED presentation and course, they note potential immunocompromise related to prior AML/bone marrow transplant and recommend admission for IV acyclovir. CBC reviewed and nondiagnostic. Creatinine insistent with prior. Plan to admit as recommended by oncology. I called and spoke with Dr. Sanchez discussed ED presentation and course, he will admit the patient. Urinalysis was not checked in the emergency department and will be followed up by Dr. Sanchez. HPI General Mode of arrival: ambulatory. Date/Time Provider Initiated Documentation: 10/19/20 20:20. Limitations to Documentation: no limitations. Information obtained by: patient. HPI Narrative: 65yo m with history of prostatic hypertrophy status post TURP AML, status post bone marrow transplant, has completed tacrolimus, here with recently diagnosed herpes zoster of the right buttock perineum and scrotum, with chief complaint of urinary retention, sent from [facility]. Patient was seen in [facility] for urinary retention has been persistent today. Attempt was made to place a Lemon catheter [facility] and unfortunately this was not draining. Urinary tension is severe, constant, no modifiers. Patient was started on Valtrex and has been taking as prescribed since late last week. Related Data Home Medications Medication Instructions Recorded Confirmed apixaban 5 mg tablet 5 mg PO BID 10/14/19 10/19/20 zonisamide 100 mg capsule 200 mg PO HS #180 tab-cap 11/25/19 10/19/20 cholecalciferol (vitamin D3) 125 125 mcg PO DAILY 02/02/20 10/19/20 mcg (5,000 unit) tablet multivitamin 1 tab PO DAILY 04/29/20 10/19/20 gabapentin 300 mg capsule 300 mg PO TID PRN #30 cap 10/15/20 10/19/20 valacyclovir 1 gram tablet 1,000 mg PO TID #21 tab 10/15/20 10/19/20 Previous Rx's Medication Instructions Recorded zonisamide 100 mg capsule 200 mg PO HS #180 tab-cap 11/25/19 gabapentin 300 mg capsule 300 mg PO TID PRN #30 cap 10/15/20 valacyclovir 1 gram tablet 1,000 mg PO TID #21 tab 10/15/20 Allergies Allergy/AdvReac Type Severity Reaction Status Date / Time lisinopril Allergy Mild rash Verified 10/19/20 18:59 Penicillins Allergy Unknown Verified 10/19/20 18:59 codeine AdvReac Severe LOWERS Verified 10/19/20 18:59 SEIZURE THRESHOLD General Stated Complaint: Urinary MARCIAL: 3 Review of Systems Constitutional Constitutional: Denies fever(s) Genitourinary Genitourinary: Reports as per HPI Integumentary/Breasts Skin/Breast: Reports as per HPI [facility] Medical History BPH (benign prostatic hyperplasia) Epilepsy HTN (hypertension) Surgical History Colonoscopy - IV Sedation (07/10/16) Excision, Lipoma (~1972) Nasal septoplasty (~1989) TONGUE SURGERY (~1969) Family History Mother , age 85 Essential hypertension AAA (abdominal aortic aneurysm) Heart disease PACEMAKER~2006 Basal cell carcinoma of nose Stroke Father , 80s Myocardial infarction Maternal Grandfather Bright's disease Paternal Grandfather Myocardial infarction Maternal Grandmother Diabetes Paternal Grandmother Breast cancer Son Depression For a time [id number] Son Alcohol abuse While going through divorce, not at present Social History Smoking/Tobacco Use Status: Never Second Hand Exposure: Yes (As a child, both parents smoked) Smoking risk assessment performed?: Yes Alcohol Intake: current Alcohol Intake frequency: holidays/special occasions only Alcohol type: wine Drug use: Never Substance use type: does not use Caregiver/Support person: No Household members: none Housing: house Communication Needs: Corrective Lenses Do you need help understanding health information?: Rarely current occupation: METEOROLOGIST Pets and animals: No Sexually active: No Do you think of yourself as: straight/heterosexual Current gender identity: male What is your relationship status?: How often do you talk on the phone with friends or family?: three or more times per week How often do you get together with friends or relatives?: never How often do you attend faith or hinduism services?: decline to answer Do you belong to any clubs or organized social groups?: yes Panel score (0-1 are the most socially isolated patients): 2 What type of physical activity do you participate in: other Details: Exercise bike Duration: 15-30 minutes/day Frequency: 3-4 times per week Jeanine/Episcopal: Agnostic Special jeanine needs: No Seatbelt use: always Drive intox or ride w/intox putaway driver: No Exam Const General: cooperative and no acute distress HENMT Mouth: moist mucous membranes Eyes Conjunctivae: normal conjunctivae Sclera: normal sclerae Cardio Rate: regular rate and not tachycardic Rhythm: regular rhythm GI Palpation: soft, not firm, no guarding, no masses, not rigid and tender (Suprapubic fullness) Penis: normal penis Meatus: meatus normal Scrotum: other (Right scrotal rash) Skin Rashes: rashes noted (Vesicular right buttock and scrotum) Psych Appearance: grossly normal Mental Status: mental status grossly normal Speech and Movement: speech and movement normal Course Vital Signs Vital signs: Vital Signs Temperature 37.2 C 10/19/20 20:59 Pulse 56 L 10/19/20 20:59 Respiratory Rate 16 10/19/20 20:59 Blood Pressure 150/82 H 10/19/20 20:59 Pulse Oximetry 99 04/20/21 20:59 Temperature 37.2 C 10/19/20 20:59 Pulse 89 10/19/20 22:45 Respiratory Rate 16 10/19/20 20:59 Respiratory Effort 10/19/20 20:15 Blood Pressure 154/82 H 10/19/20 22:45 Pulse Oximetry 96 10/19/20 22:45 Oxygen Delivery Method Room Air 10/19/20 20:59 Oxygen Flow Rate 0 10/19/20 20:59 Pain Level 8 10/19/20 20:22 Lab/Test Results Lab/Test Results: Laboratory Tests Range/Units 10/19/20 10/19/20 10/19/20 21:26 21:26 22:17 WBC (4.4-10.8) 10^3/uL 8.04 RBC (4.36-5.78) 10^6/uL 4.43 Hgb (13.5-17.5) g/dL 13.3 L Hct (40.0-50.0) % 39.8 L MCV (80-95) fL 89.8 MCH (27.0-33.0) pg 30.0 MCHC (32.0-36.0) % 33.4 RDW (11.8-14.1) % 12.9 Plt Count (130-400) 10^3/uL 203 MPV (8.0-11.0) fL 9.4 Immature Gran % 0.1 Neutrophils % 34.4 Lymphocytes % 54.0 Monocytes % 9.0 Eosinophils % 2.0 Basophils % 0.5 Nucleated RBC % % 0 Absolute Neutrophils (1.2-6.7) 10^3/uL 2.77 Absolute Lymphocytes (1.2-3.4) 10^3/uL 4.34 H Absolute Monocytes (0.1-0.8) 10^3/uL 0.72 Absolute Eosinophils (0.0-0.7) 10^3/uL 0.16 Absolute Basophils (0.0-0.2) 10^3/uL 0.04 Sodium (136-145) mmol/L 139 Potassium (3.5-5.1) mmol/L 3.8 Chloride (98-107) mmol/L 103 Carbon Dioxide (21.0-32.0) mmol/L 24.8 Anion Gap (3-11) mmol/L 11.2 H BUN (7-18) mg/dL 31 H Creatinine (0.70-1.30) mg/dL 1.6 H Estimated GFR/1.73 m2 (mL/min/1.73m2) 43.60 Glucose (74-106) mg/dL 99 Calcium (8.5-10.1) mg/dL 9.0 COVID-19 Source Nasopharyx
[2020-10-19 23:26] VITALS: BP 151/83; PULSE 79; RESP 18; TEMP 37.6; O2SAT 100
[2020-10-20] VITALS (10 sets, daily range): BP systolic 108–132; BP diastolic 64–80; PULSE 78–85; RESP 18–20; TEMP 36.3–37.3; O2SAT 95–96
--- NOTE | 2020-10-20 00:10 | W.PM.HP.N ---
Date of service: 10/19/20 Time of Service: 23:32 Assessment and Plan Assessment and plan (1) Acute urinary retention: Status: Acute Assessment and plan: Jacob catheter was able to be placed in the emergency room. Patient has a history of BPH but has not had symptoms since TURP procedure years ago. This episode was clearly triggered by regional shingles reactivation. I will start tamsulosin and request urology consult for follow up plan. I suspect we will leave jacob until inflammation from shingles has subsided. (2) CKD (chronic kidney disease): Status: Acute Assessment and plan: Stage 3 CKD, fortunately his creatinine is at baselines, no uropathy despite acute obstruction . Follow renal function. Qualifiers: Chronic kidney disease stage: stage 2 (mild) Qualified Code(s): N18.2 - Chronic kidney disease, stage 2 (mild) (3) Herpes zoster: Status: Acute Assessment and plan: Per [facility] oncology treating as immune suppressed with IV acyclovir. He did respond already partially to oral valacyclovir. (4) Bone marrow transplant status: Status: Chronic Assessment and plan: appears to be doing well off immune supression (5) Epilepsy: Status: Acute Assessment and plan: no recent seizure, continue zonisamide Qualifiers: Epilepsy type: unspecified Intractability: not intractable Status epilepticus: without status epilepticus Qualified Code(s): G40.909 - Epilepsy, unspecified, not intractable, without status epilepticus (6) DVT prophylaxis: Status: Acute Assessment and plan: on apixaban chronically. (7) Discharge planning issues: Status: Acute Assessment and plan: stable on medical status in the ICU, he is full code. Review of Systems Constitutional Constitutional: Denies anorexia, Denies chills, Denies fever(s), Reports lethargy and Denies weakness Eyes Eyes: Denies change in vision, Denies irritation and Denies other visual disturbances ENT Ears, Nose, Mouth, and Throat: Denies vertigo, Denies dizziness, Denies nasal congestion, Denies nasal discharge and Denies sore throat Cardiovascular Cardiovascular: Denies chest pain, Denies chest pain with activity, Denies leg ulcers, Denies palpitations and Denies orthopnea Respiratory Respiratory: Denies cough, Denies excessive phlegm production and Denies wheezing Gastrointestinal Gastrointestinal: Denies abdominal pain, Denies heartburn, Denies nausea and Denies vomiting Genitourinary Genitourinary: Denies hematuria, Reports dysuria and Denies urinary incontinence Musculoskeletal Musculoskeletal: Denies back pain Integumentary/Breasts Skin/Breast: Reports as per HPI, Reports rash and Reports skin ulcer Neurologic Neurologic: Denies vertigo, Denies dizziness, Denies seizure-like activity, Denies sensory deficit and Denies weakness Psychiatric Psychiatric: Denies mood swings and Denies panic attacks Endocrine Endocrine: Denies palpitations Hematologic/Lymphatic Hematologic/Lymphatic: Denies easy bleeding and Denies lymphadenopathy Allergic/Immunologic Allergic/Immunologic: Denies wheezing [facility] Medical History (Updated 10/20/20 @ 00:14 by Maynor Sanchez) BPH (benign prostatic hyperplasia) Epilepsy HTN (hypertension) Surgical History (Updated 10/20/20 @ 00:14 by Maynor Sanchez) Colonoscopy - IV Sedation (07/10/16) Excision, Lipoma (~1972) H/O bone marrow transplant Nasal septoplasty (~1989) S/P TURP TONGUE SURGERY (~1969) Family History Mother , age 85 Essential hypertension AAA (abdominal aortic aneurysm) Heart disease PACEMAKER~2006 Basal cell carcinoma of nose Stroke Father , 80s Myocardial infarction Maternal Grandfather Bright's disease Paternal Grandfather Myocardial infarction Maternal Grandmother Diabetes Paternal Grandmother Breast cancer Son Depression For a time [id number] Son Alcohol abuse While going through divorce, not at present Social History (Updated 10/20/20 @ 01:47 by Maynor Sanchez) Smoking/Tobacco Use Status: Never Second Hand Exposure: Yes (As a child, both parents smoked) Smoking risk assessment performed?: Yes Alcohol Intake: current Alcohol Intake frequency: holidays/special occasions only Alcohol type: wine Drug use: Never Substance use type: does not use Caregiver/Support person: No Household members: none Housing: house Communication Needs: Corrective Lenses Do you need help understanding health information?: Rarely current occupation: METEOROLOGIST Pets and animals: No Sexually active: No Do you think of yourself as: straight/heterosexual Current gender identity: male What is your relationship status?: How often do you talk on the phone with friends or family?: three or more times per week How often do you get together with friends or relatives?: never How often do you attend christianity or mormon services?: decline to answer Do you belong to any clubs or organized social groups?: yes Panel score (0-1 are the most socially isolated patients): 2 What type of physical activity do you participate in: other Details: Exercise bike Duration: 15-30 minutes/day Frequency: 3-4 times per week Jeanine/Catholic: Agnostic Special jeanine needs: No Seatbelt use: always Drive intox or ride w/intox class b truck driver: No Additional Social history: Formerly on [employer], 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 Meds Allergies and Home Medications Allergies Allergy/AdvReac Type Severity Reaction Status Date / Time lisinopril Allergy Mild rash Verified 10/19/20 18:59 Penicillins Allergy Unknown Verified 10/19/20 18:59 codeine AdvReac Severe LOWERS Verified 10/19/20 18:59 SEIZURE THRESHOLD Home Medications Medication Instructions Recorded Confirmed Type apixaban 5 mg tablet 5 mg PO BID 10/14/19 10/19/20 History zonisamide 100 mg capsule 200 mg PO HS #180 tab-cap 11/25/19 10/19/20 Rx cholecalciferol (vitamin D3) 125 125 mcg PO DAILY 02/02/20 10/19/20 History mcg (5,000 unit) tablet multivitamin 1 tab PO DAILY 04/29/20 10/19/20 History gabapentin 300 mg capsule 300 mg PO TID PRN #30 cap 10/15/20 10/19/20 Rx valacyclovir 1 gram tablet 1,000 mg PO TID #21 tab 10/15/20 10/19/20 Rx Exam Narrative Exam Narrative: GEN: Alert and oriented, pleasent and cooperative, gives linear history. No acute distress at rest. HEENT: Head atraumatic. Conjunctiva clear, no icterus. PEERL, EOMI. no rhinorrhea. MMM, OP benign. Neck is supple with no masses or lymphadenopathy, trachea midline LUNGS: CTAB with normal effort CV: RRR with no murmurs, gallops, or rubs. ABD: +BS, soft, NT/ND : nl testlcles gage and penis, except for rash EXT: no cyanosis, clubbing, or edema MSK: No joint redness or swelling NEURO: CN 2-12 grossly intact. Normal movement of 4 extremities. Normal speech and coordination SKIN: red patch with many small ulcerations, some crusted, from right buttocks to perinim and scrotum to right side of penis. PSYCH: normal mood and affect Results Labs Result diagrams: 10/19/20 21:26 10/19/20 21:26 Labs: Laboratory Results - last 24 hr 10/19/20 10/19/20 10/19/20 21:26 21:26 22:17 WBC 8.04 RBC 4.43 Hgb 13.3 L Hct 39.8 L MCV 89.8 MCH 30.0 MCHC 33.4 RDW 12.9 Plt Count 203 MPV 9.4 Immature Gran % 0.1 Neutrophils % 34.4 Lymphocytes % 54.0 Monocytes % 9.0 Eosinophils % 2.0 Basophils % 0.5 Nucleated RBC % 0 Absolute Neutrophils 2.77 Absolute Lymphocytes 4.34 H Absolute Monocytes 0.72 Absolute Eosinophils 0.16 Absolute Basophils 0.04 Sodium 139 Potassium 3.8 Chloride 103 Carbon Dioxide 24.8 Anion Gap 11.2 H BUN 31 H Creatinine 1.6 H Estimated GFR/1.73 m2 43.60 Glucose 99 Calcium 9.0 COVID-19 Source Nasopharyx Last Vital Signs Temp 37.6 C H 10/19/20 23:26 Pulse 79 10/19/20 23:26 Resp 18 10/19/20 23:26 BP 151/83 H 10/19/20 23:26 Pulse Ox 100 10/19/20 23:26 COVID-19 Screening Have you, or household traveled for leisure in last 14 days?: No Had IN PERSON contact w/suspected or confirmed C-19 person: No
[2020-10-20] MEDS: Normal Saline Flush 10 ML SYR IVP ×2 (03:17→19:11)
[2020-10-20] MEDS: Zonisamide 100 MG CAP 200 MG PO ×2 (06:53→21:06)
--- NOTE | 2020-10-20 07:24 | UCONE_ITS ---
Date of service: 10/20/20 Time of Service: 12:02 Assessment and Plan Assessment and plan (1) Acute urinary retention: Status: Acute Assessment and plan: Since he had no voiding symptoms until the outbreak of shingles, I agree with Dr. Sanchez that his voiding symptoms will likely return to baseline as his shingles improve. We talked about alternative bladder drainage strategies including intermittent catheterization or placement of a suprapubic tube. For the time being, he is quite comfortable with his urethral catheter. Once he is ready for discharge, we will send him home with his catheter either to a leg bag or to a catheter plug that he can remove to drain the bladder intermittently. We can leave the catheter in place for up to a month, but if his perineal pain improves, he can call our office and we will arrange a voiding trial before the month is up. History of Present Illness Narrative: Chief plan: Urinary retention This is a 65-year-old gentleman who has a history of acute lymphoblastic leukemia. He underwent chemotherapy and ultimately a bone marrow transplant. During his chemotherapy treatments over 2 years ago, he developed urinary retention. He required an indwelling catheter for an estimated 8 weeks. He then underwent cystoscopy with a laser TURP. Following the procedure, he was able to void with no difficulty until recently. He has been having an outbreak of shingles in the right perineum. He has been on oral antiviral medications, but presented to the urgent care facility unable to urinate last evening. He was then sent to the emergency room where a Lemon catheter was placed. He was admitted and IV antivirals were begun. He is comfortable with his indwelling catheter. He is experienced with catheter care and he is expecting to leave the catheter until the perineal shingles have improved. He tells me that the visual appearance of the shingles as well as the discomfort level are improved today compared to yesterday. I was able to review his urology records from the [facility] EMR system. He had urinary retention and multiple small bladder stones. Anatomically, it was felt that his obstruction was likely related to a large median lobe of the prostate. After initially being managed with an indwelling catheter, he underwent cystoscopy, cystolitholopaxy and laser TURP on 06/28/2018. A Lemon catheter was left in place for about a week. He passed a voiding trial in the urology office about a week later. He has not been on any prostate or bladder medications since then. He does have a history of an elevated PSA. He is followed for this issue by Dr. Romero candelario at [facility]. Prior to his TURP, his PSA had been as high as 69.88 ng/mL. The PSA has gradually come down since his procedure. At last check, in August 2020, the PSA was 18.3. He has a PSA order for next year already placed in the [facility] EMR. I was able to review his surgical pathology from the laser TURP. The prostate chips showed benign tissue only. Review of Systems Constitutional Constitutional: Denies chills and Denies fever(s) Cardiovascular Cardiovascular: Denies chest pain Respiratory Respiratory: Denies cough and Denies wheezing Allergic/Immunologic Allergic/Immunologic: Denies wheezing PFSH Medical History (Updated 10/20/20 @ 00:14 by Maynor Sanchez) BPH (benign prostatic hyperplasia) Epilepsy HTN (hypertension) Surgical History (Updated 10/20/20 @ 00:14 by Maynor Sanchez) Colonoscopy - IV Sedation (07/10/16) Excision, Lipoma (~1972) H/O bone marrow transplant Nasal septoplasty (~1989) S/P TURP TONGUE SURGERY (~1969) Family History Mother , age 85 Essential hypertension AAA (abdominal aortic aneurysm) Heart disease PACEMAKER~2006 Basal cell carcinoma of nose Stroke Father , 80s Myocardial infarction Maternal Grandfather Bright's disease Paternal Grandfather Myocardial infarction Maternal Grandmother Diabetes Paternal Grandmother Breast cancer Son Depression For a time [id number] Son Alcohol abuse While going through divorce, not at present Social History (Updated 10/20/20 @ 01:47 by Maynor Sanchez) Smoking/Tobacco Use Status: Never Second Hand Exposure: Yes (As a child, both parents smoked) Smoking risk assessment performed?: Yes Alcohol Intake: current Alcohol Intake frequency: holidays/special occasions only Alcohol type: wine Drug use: Never Substance use type: does not use Caregiver/Support person: No Household members: none Housing: house Communication Needs: Corrective Lenses Do you need help understanding health information?: Rarely current occupation: METEOROLOGIST Pets and animals: No Sexually active: No Do you think of yourself as: straight/heterosexual Current gender identity: male What is your relationship status?: How often do you talk on the phone with friends or family?: three or more times per week How often do you get together with friends or relatives?: never How often do you attend mandaeism or synagogue services?: decline to answer Do you belong to any clubs or organized social groups?: yes Panel score (0-1 are the most socially isolated patients): 2 What type of physical activity do you participate in: other Details: Exercise bike Duration: 15-30 minutes/day Frequency: 3-4 times per week Jeanine/Confucianism: Agnostic Special jeanine needs: No Seatbelt use: always Drive intox or ride w/intox forklift driver: No Additional Social history: Formerly on [employer], now retired. Trustee at . Lives in [place]. Exam Narrative Exam Narrative: He does not appear septic or toxic His vital signs are documented elsewhere in the chart His Lemon catheter is draining clear urine There is an erythematous area with vesicles involving the right buttock, groin, scrotum and penis He is awake and alert Results Last Vital Signs Temp 36.8 C 10/20/20 06:30 Pulse 79 10/20/20 06:45 Resp 18 10/19/20 23:26 BP 122/68 10/20/20 06:45 Pulse Ox 100 10/19/20 23:26 Labs Result diagrams: 10/19/20 21:26 10/20/20 05:55 Labs: Laboratory Results - last 24 hr 10/19/20 10/19/20 10/19/20 21:26 21:26 22:17 WBC 8.04 RBC 4.43 Hgb 13.3 L Hct 39.8 L MCV 89.8 MCH 30.0 MCHC 33.4 RDW 12.9 Plt Count 203 MPV 9.4 Immature Gran % 0.1 Neutrophils % 34.4 Lymphocytes % 54.0 Monocytes % 9.0 Eosinophils % 2.0 Basophils % 0.5 Nucleated RBC % 0 Absolute Neutrophils 2.77 Absolute Lymphocytes 4.34 H Absolute Monocytes 0.72 Absolute Eosinophils 0.16 Absolute Basophils 0.04 Sodium 139 Potassium 3.8 Chloride 103 Carbon Dioxide 24.8 Anion Gap 11.2 H BUN 31 H Creatinine 1.6 H Estimated GFR/1.73 m2 43.60 Glucose 99 Calcium 9.0 COVID-19 Source Nasopharyx
[2020-10-20 07:47] LABS: Anion Gap 8.4 mmol/L (3-11); BUN 30 mg/dL (7-18); CO2 25.6 mmol/L (21.0-32.0); CREATININE 1.5 mg/dL (0.70-1.30); Calcium 8.5 mg/dL (8.5-10.1); Chloride 104 mmol/L (98-107); Estimated GFR 46.97 (mL/min/1.73m2); Glucose 92 mg/dL (74-106); Potassium 3.7 mmol/L (3.5-5.1); Sodium 138 mmol/L (136-145)
[2020-10-20] MEDS: Tamsulosin 0.4 MG CAPCR PO (08:11)
[2020-10-20] MEDS: Multivitamin TAB 1 TAB PO (08:11)
[2020-10-20] MEDS: Apixaban 5 MG TAB PO ×2 (08:11→19:11)
[2020-10-20 08:22] LABS: Bilirubin Negative (Negative); Blood Large (Negative); Clarity Sl Cloudy (Clear); Glucose Negative (Negative); Ketones Negative (Negative); Leukocyte Esterase Trace (Negative); Nitrite Negative (Negative); Urobilinogen 0.2 EU/dL (Up TO 0.2); pH 7.5 (5-8)
[2020-10-20 08:34] LABS: Bacteria Moderate HPF (Negative); C & S Indicated? Yes; Casts Negative LPF (Negative); Crystals Negative HPF (Negative); Epithelial Cells Rare HPF (Negative); Mucus Negative (Negative); RBC >50 HPF (0-2)
[2020-10-20] MEDS: ACYCLOVIR SODIUM 700 MG in Normal Saline 250 ML 250 MG IVPB ×2 (09:54→21:05)
[2020-10-20 11:03] LABS: COVID-19 PCR Negative (Negative)
--- NOTE | 2020-10-20 14:13 | PDOC.CMIN ---
- If Service Date Differs Date of service: 10/20/20 Time of Service: 14:14 Care Management Initial Assess REASON FOR HOSPITALIZATION:: Urinary Retention, shingles PAST MEDICAL HISTORY/PAST SURGICAL HISTORY:: Medical History. BPH (benign prostatic hyperplasia). Epilepsy. HTN (hypertension). Surgical History. Colonoscopy - IV Sedation (07/10/16). Excision, Lipoma (~1972). H/O bone marrow transplant. Nasal septoplasty (~1989). S/P TURP. TONGUE SURGERY (~1969) PREVIOUS FUNCTIONAL STATUS/SOCIAL/FAMILY SUPPORTS:: Nacho lives in [place]. Per chart review, he has a s/o, Ciera, and he has two children who live locally. He is previously independent at baseline. CURRENT FUNCTIONAL STATUS:: CM was unable to meet with Luis, due to precautions. CM attempted to call his cell phone, and left a voice message. Per report, he had a catheter succesfully placed, and will likely return home tomorrow with oral antibiotics. CM will continue to follow. ADVANCE DIRECTIVES:: On file. Levy listed as agent, Jose listed as alternative agent. Has patient been provided with info about the portal/API?: Yes Did the patient sign up for the portal?: Yes (previously) CODE STATUS:: Full Code INSURANCE COVERAGE / FINANCIAL ISSUES:: MVP MCR replacement/ MCR/ MVP CURRENT HOME/COMMUNITY SERVICES/EQUIPMENT:: No known services or equipment. PRIMARY CARE PHYSICIAN:: Solomon Atwood POTENTIAL DISCHARGE NEEDS:: Follow up appointments, catheter care training. PATIENT/FAMILY EDUCATION NEEDS:: Review discharge instructions regarding medications and catheter care, discussion of self care needs. ANTICIPATED BARRIERS TO DISCHARGE:: None identified. TRANSPORTATION:: Via private vehicle by family. PLAN:: Anticipate Nacho will return home with no additional services once medically cleared. He will be driven home via private vehicle by family. He will follow up with his PCP and discharge plan of care. CM will continue to follow.
--- NOTE | 2020-10-20 15:04 | W.PM.PROGNOT ---
Date of Service Date of service: 10/20/20 Time of Service: 15:04 Assessment and Plan Assessment and plan (1) Herpes zoster: Status: Acute Assessment and plan: Continue acyclovir intravenous through tonight. We will discharge him home in the morning and continue treatment with oral valacyclovir. Qualifiers: Herpes zoster complications: with other complications Qualified Code(s): B02.8 - Zoster with other complications (2) Acute urinary retention: Status: Acute Assessment and plan: Continue indwelling Lemon catheter. Patient is well versed in the care of the catheter. He previously had an indwelling catheter for up to 2 months and knows how to manage this. When he goes home we will give him a leg bag to use during the day and he can use a larger drainage bag at night. He can follow-up with Dr. Guerrero as an outpatient to have the catheter removed in a week. Subjective Subjective Interval history since last seen: Patient is doing much better today. Patient developed shingles a week ago got started on valacyclovir last Sunday along with gabapentin. However he developed swelling of his perineum and scrotum and developed acute urinary retention. Lemon catheter was placed successfully last night. Says even prior to coming the hospital though the shingles were improving. 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 Dr. Guerrero has seen the patient and agrees with continued indwelling Lemon catheter until the swelling has gone down from his shingles at which time catheter can be removed as an outpatient. I have asked Mr. Swan to continue continue the IV valacyclovir through today and then he could go home tomorrow to complete 10-day course of his valcyclovir. Exam Narrative Exam Narrative: Perineum and right side of his scrotum and medial proximal right thigh along with the base of his penis have vesicular lesions consistent with shingles. Some of these are drying up but most of them are still moist and swollen. Head of the penis is not swollen and shaft is not swollen but the perineum appears to be slightly swollen. Objective Last Vital Signs Temp 36.8 C 10/20/20 06:30 Pulse 81 10/20/20 12:21 Resp 18 10/19/20 23:26 BP 123/75 10/20/20 12:21 Pulse Ox 100 10/19/20 23:26 Laboratory Results - last 24 hr 10/19/20 10/19/20 10/19/20 21:26 21:26 22:17 WBC 8.04 RBC 4.43 Hgb 13.3 L Hct 39.8 L MCV 89.8 MCH 30.0 MCHC 33.4 RDW 12.9 Plt Count 203 MPV 9.4 Immature Gran % 0.1 Neutrophils % 34.4 Lymphocytes % 54.0 Monocytes % 9.0 Eosinophils % 2.0 Basophils % 0.5 Nucleated RBC % 0 Absolute Neutrophils 2.77 Absolute Lymphocytes 4.34 H Absolute Monocytes 0.72 Absolute Eosinophils 0.16 Absolute Basophils 0.04 Sodium 139 Potassium 3.8 Chloride 103 Carbon Dioxide 24.8 Anion Gap 11.2 H BUN 31 H Creatinine 1.6 H Estimated GFR/1.73 m2 43.60 Glucose 99 Calcium 9.0 Urine Color Urine Clarity Urine pH Ur Specific [place] Urine Protein Urine Ketones Urine Blood Urine Nitrite Urine Bilirubin Urine Urobilinogen Ur Leukocyte Esterase Urine RBC Urine WBC Ur Epithelial Cells Urine Crystals Urine Bacteria Urine Casts Urine Mucus Ur Culture Indicated? Urine Glucose COVID-19 Source Nasopharyx SARS-CoV-2 (PCR) Negative 10/20/20 10/20/20 05:55 06:55 WBC RBC Hgb Hct MCV MCH MCHC RDW Plt Count MPV Immature Gran % Neutrophils % Lymphocytes % Monocytes % Eosinophils % Basophils % Nucleated RBC % Absolute Neutrophils Absolute Lymphocytes Absolute Monocytes Absolute Eosinophils Absolute Basophils Sodium 138 Potassium 3.7 Chloride 104 Carbon Dioxide 25.6 Anion Gap 8.4 BUN 30 H Creatinine 1.5 H Estimated GFR/1.73 m2 46.97 Glucose 92 Calcium 8.5 Urine Color Yellow Urine Clarity Sl cloudy Urine pH 7.5 Ur Specific [place] 1.020 Urine Protein 30 H Urine Ketones Negative Urine Blood Large H Urine Nitrite Negative Urine Bilirubin Negative Urine Urobilinogen 0.2 Ur Leukocyte Esterase Trace H Urine RBC >50 H Urine WBC 5-10 Ur Epithelial Cells Rare Urine Crystals Negative Urine Bacteria Moderate Urine Casts Negative Urine Mucus Negative Ur Culture Indicated? Yes Urine Glucose Negative COVID-19 Source SARS-CoV-2 (PCR)
[2020-10-21] VITALS (16 sets, daily range): BP systolic 95–134; BP diastolic 61–86; PULSE 58–88; TEMP 36.4–36.6; O2SAT 95–98
[2020-10-21] MEDS: Tamsulosin 0.4 MG CAPCR PO (07:51)
[2020-10-21] MEDS: Multivitamin TAB 1 TAB PO (07:51)
[2020-10-21] MEDS: Apixaban 5 MG TAB PO ×2 (07:52→19:57)
[2020-10-21] MEDS: Acetaminophen 325 MG TAB 650 MG PO ×2 (07:57→21:18)
--- NOTE | 2020-10-21 09:05 | PDOC.CMDIS ---
LACE Index Scoring Tool - Questions: Length of Stay (in days): 2 Acuity (Admit via E.D.?): Yes Comorbidities: Any Tumor E.D. Visits: 1 - Answers: Total Score: 8 Risk of Readmission: Low Risk Care Management Discharge Reason for Hospitalization: Urinary Retention, shingles Discharge Plan: Nacho will return home with no additional services once medically cleared. He will be driven home via private vehicle by family. He will follow up with his PCP and discharge plan of care. Patient/Family Education Needs: Review discharge instructions regarding medications and catheter care, discussion of self care needs.
[2020-10-21] MEDS: ACYCLOVIR SODIUM 700 MG in Normal Saline 250 ML 250 MG IVPB ×2 (09:55→21:01)
--- NOTE | 2020-10-21 10:27 | W.NUTRFU ---
Date of service: 10/21/20 Time of Service: 10:27 Nutritional Follow up NOTE: 65 year old male admitted with urinary retnetion and shingles with hx of BPH, bone marrow transplant. Following regular diet with adequate intake to meet nutrient and fluid needs. Not at nutritional risk. Time Spent in Nutritional Counseling and Treatment: 0
--- NOTE | 2020-10-21 11:15 | RT.EKG_ITS ---
APPROVED REPORT Exam: Resting ECG Patient Location: I HR:66 bpm ECG Measurements Heart Rate 66 AXIS AL 139 P 55 QRSd 94 QRS 37 QT 427 T 45 QTc 448 Conclusion Sinus rhythm...normal P axis, V-rate 60- 99 Poor R wave progression
[2020-10-21] MEDS: Normal Saline 1,000 ML 1000 ML IV (11:50)
[2020-10-21 12:15] LABS: Abs Immature Grans 0.01 10^3/uL (0.0-0.06); Absolute Basophil Count 0.03 10^3/uL (0.0-0.2); Absolute Eosinophil Count 0.11 10^3/uL (0.0-0.7); Absolute Lymphocyte Count 6.01 10^3/uL (1.2-3.4); Absolute Monocyte Count 0.64 10^3/uL (0.1-0.8); Absolute Neutrophil Count 2.15 10^3/uL (1.2-6.7); Basophils % 0.3; Eosinophils % 1.2; HCT 39.1 % (40.0-50.0); HGB 13.1 g/dL (13.5-17.5); Immature Grans % 0.1; Lymphocytes % 67.2; MCHC 33.5 % (32.0-36.0); MCV 89.7 fL (80-95); MPV 9.8 fL (8.0-11.0); Monocytes % 7.2; Nucleated RBC 0 %; Platelet Count 210 10^3/uL (130-400); RBC 4.36 10^6/uL (4.36-5.78); RDW 12.8 % (11.8-14.1); RDW-SD 42.5 fL; WBC 8.95 10^3/uL (4.4-10.8)
[2020-10-21 12:35] LABS: Troponin I < 0.05 ng/mL (<0.06)
--- NOTE | 2020-10-21 13:19 | W.PM.PROGNOT ---
Date of Service Date of service: 10/21/20 Time of Service: 11:30 Assessment and Plan Assessment and plan (1) Herpes zoster: Status: Acute Assessment and plan: cont. iv acyclovir and change his gabapentin from prn to scheduled 300 mg tid. Qualifiers: Herpes zoster complications: with other complications Qualified Code(s): B02.8 - Zoster with other complications (2) Acute urinary retention: Status: Acute Assessment and plan: Continue indwelling Lemon catheter. Patient is well versed in the care of the catheter. He previously had an indwelling catheter for up to 2 months and knows how to manage this. When he goes home we will give him a leg bag to use during the day and he can use a larger drainage bag at night. He can follow-up with Dr. Guerrero as an outpatient to have the catheter removed in a week. (3) Syncope: Status: Chronic Assessment and plan: His EKG, troponin and Hemoglobin were normal. I suspect a combination of some dehydration and vasovagal episode as this occurred while he was on the toilet. EEG was ordered d/t his prior hx of seizures however, I am convinced that this was a syncopal spell and not a seizure i.e. no biting of tongue or lips and no tonic/clonic activity. Qualifiers: Syncope type: vasovagal syncope Qualified Code(s): R55 - Syncope and collapse Subjective Subjective Interval history since last seen: Patient was expected to be discharged this morning however he developed a syncopal spell while sitting up on the bedside commode. This is preceded by symptoms of lightheadedness and dizziness but no vertigo. Denies a headache. There was no tonic-clonic seizure activity although when the nurse called me for rapid response she thought that he was having a seizure. Apparently his eyes became glazed over and he was unresponsive. Unfortunately they did not get a bp until he was already becoming more alert. Patient denies any CP or dyspnea. He has had no nausea or vomiting. He is having some discomfort over his perineum from his shingles. He is also concerned that he may be getting a UTI. Immediately after his syncopal spell his blood pressure is 95/60. Since that he has been given a liter of saline and is feeling markedly better. Because of his prior history of seizures were getting an EEG however it does not sound like he had a seizure episode. Exam Narrative Exam Narrative: Thin white male, initially was not oriented when I arrived to evaluate him after his syncope. However he is now alert and oriented x 3 Lungs are clear Heart is regular w/out murmur Abdomen is soft, nontender Perineum, proximal thigh, and scrotum and penile shaft including head of penis w/ small blisters c/w zoster. Objective Last Vital Signs Temp 36.6 C 10/21/20 08:00 Pulse 67 10/21/20 12:15 Resp 18 10/20/20 23:38 BP 117/65 10/21/20 12:15 Pulse Ox 98 10/21/20 12:15 Laboratory Results - last 24 hr 10/21/20 10/21/20 11:50 11:50 WBC 8.95 RBC 4.36 Hgb 13.1 L Hct 39.1 L MCV 89.7 MCH 30.0 MCHC 33.5 RDW 12.8 Plt Count 210 MPV 9.8 Immature Gran % 0.1 Neutrophils % 24.0 Lymphocytes % 67.2 Monocytes % 7.2 Eosinophils % 1.2 Basophils % 0.3 Nucleated RBC % 0 Absolute Neutrophils 2.15 Absolute Lymphocytes 6.01 H Absolute Monocytes 0.64 Absolute Eosinophils 0.11 Absolute Basophils 0.03 Troponin I < 0.05
[2020-10-21 14:17] LABS: Anion Gap 10.4 mmol/L (3-11); BUN 30 mg/dL (7-18); CO2 23.6 mmol/L (21.0-32.0); CREATININE 1.6 mg/dL (0.70-1.30); Calcium 8.8 mg/dL (8.5-10.1); Chloride 103 mmol/L (98-107); Glucose 130 mg/dL (74-106); Potassium 3.5 mmol/L (3.5-5.1); Sodium 137 mmol/L (136-145)
[2020-10-21] MEDS: Normal Saline 1,000 ML 150 ML IV ×2 (14:17→21:01)
--- NOTE | 2020-10-21 15:23 | PDOC.EEG ---
Neurology EEG EEG: [facility] Department of Neurology INPATIENT EEG REPORT Date of Recordin10/21/20 Interpreting Physician: Dr. Ragini Keller Reason for study: Mr. Swan is a 65 year-old man with a known epilepsy disorder, but no known seizures in decades. He was admitted for herpes zoster infection when he had a spell of LOC concerning for syncope vs seizure. Current Medications: Current Medications Acetaminophen (Acetaminophen 325 Mg Tab) 650 mg PO Q4H PRN PRN Last Admin: 10/21/20 07:57 Dose: 650 mg Documented by: Apixaban (Apixaban 5 Mg Tab) 5 mg PO BID [facility] Last Admin: 10/21/20 07:52 Dose: 5 mg Documented by: Dimethicone/Zinc Oxide (Tala Protect Cream 142 Gm Tube) 0 gm TP PRN PRN Gabapentin (Gabapentin 300 Mg Cap) 300 mg PO TID [facility] Last Admin: 10/21/20 14:18 Dose: 300 mg Documented by: Sodium Chloride (Saline 500ml Bag) 500 mls @ 0 mls/hr IV PRN PRN Acyclovir Sodium 700 mg/ (Sodium Chloride) 250 mls @ 250 mls/hr IVPB Q12H [facility] Last Admin: 10/21/20 09:55 Dose: 250 mls/hr Documented by: Sodium Chloride (Saline 1000ml Bag) 1,000 mls @ 150 mls/hr IV INFUSION [facility] Last Admin: 10/21/20 14:17 Dose: 150 mls/hr Documented by: IV Miscellaneous Supplies (Iv Access) 1 each IV DIRECTED [facility] Multivitamins (Multivitamin Tab) 1 tab PO DAILY [facility] Last Admin: 10/21/20 07:51 Dose: 1 tab Documented by: Sodium Chloride (Normal Saline Flush 10 Ml Syr) 0 ml IVP PRN PRN Last Admin: 10/20/20 19:11 Dose: 20 ml Documented by: Tamsulosin HCl (Tamsulosin 0.4 Mg Capcr) 0.4 mg PO DAILY [facility] Last Admin: 10/21/20 07:51 Dose: 0.4 mg Documented by: Zonisamide (Zonisamide 100 Mg Cap) 200 mg PO HS [facility] Last Admin: 10/20/20 21:06 Dose: 200 mg Documented by: METHODS: A 21 channel digitized electroencephalogram was performed in the [facility] Med/Surg Floor or ICU. The 10/20 international system of electrode placement was used and bipolar and referential electrode montages were recorded. In addition to EEG the patient was monitored for EKG and lateral/vertical eye movements. Activation procedures of photic stimulation and hyperventilation were performed if applicable. Video was used during activation procedures and during events where applicable. The duration of the recording was 30 minutes. DESCRIPTION OF EEG: The patient was noted to be awake, drowsy, and asleep during the recording. During maximal wakefulness a 10-Hz posterior background rhythm was present which was well-modulated, symmetrical, reactive to eye opening, and of moderate voltage. With eye opening the background activity changed to a low voltage mixture of alpha, beta, and occasional theta range frequencies. Faster frequencies were present in the bilateral anterior head regions. There was a normal anterior-posterior voltage gradient. During drowsiness, there was attenuation of the posterior dominant background rhythm and vertex waves. Stage II sleep was present with symmetrical sleep spindles, K-complexes, and vertex waves. Activating Procedures: Photic stimulation was performed which produced no posterior driving response. Hyperventilation was performed with moderate effort and produced no physiological slowing of the background. EKG: EKG revealed normal sinus rhythm. INTERPRETATION: This EEG is normal during the awake and sleep states as well as during photic stimulation and hyperventilation. PRIOR EEG: none CLINICAL CORRELATION: No focal regions of cerebral dysfunction or epileptiform activity was present. Epilepsy remains a clinical diagnosis and a normal EEG does not rule out epilepsy. Clinical correlation is advised. Ragini Keller MD
[2020-10-21 18:12] LABS: Prolactin 10.2 ng/mL (2.1-17.7)
[2020-10-21] MEDS: Zonisamide 100 MG CAP 200 MG PO (21:02)
[2020-10-22] MEDS: Normal Saline 1,000 ML 150 ML IV (03:21)
[2020-10-22] MEDS: Acetaminophen 325 MG TAB 650 MG PO (06:56)
[2020-10-22 07:07] LABS: Bilirubin Negative (Negative); Blood Trace-lysed (Negative); Clarity Sl Cloudy (Clear); Glucose Negative (Negative); Ketones Negative (Negative); Leukocyte Esterase Moderate (Negative); Nitrite Negative (Negative); Urobilinogen 0.2 EU/dL (Up TO 0.2); pH 7.5 (5-8)
[2020-10-22 07:08] LABS: Bacteria Few HPF (Negative); C & S Indicated? Yes; Casts Negative LPF (Negative); Crystals Negative HPF (Negative); Epithelial Cells Negative HPF (Negative); Mucus Negative (Negative)
[2020-10-22] MEDS: Tamsulosin 0.4 MG CAPCR PO (08:08)
[2020-10-22] MEDS: Apixaban 5 MG TAB PO (08:08)
[2020-10-22] MEDS: Multivitamin TAB 1 TAB PO (08:08)
[2020-10-22 08:19] VITALS: BP 143/85; PULSE 71; O2SAT 97
[2020-10-22] MEDS: Fosfomycin Tromethamine 3 GM PACKET PO (09:28)
--- NOTE | 2020-10-22 09:43 | W.PM.DS.N ---
Date of service: 10/22/20 Time of Service: 09:44 DS: Diagnosis Discharge Diagnosis (1) Herpes zoster: Status: Acute Asessment and Plan: Continue valacyclovir 1 g 3 times a day for 7 more days. Use gabapentin 300 mg orally 3 times a day as needed for zoster pain. (2) Acute urinary retention: Status: Acute Asessment and Plan: Continue indwelling Jacob catheter changing the bag as directed. Follow-up with Dr. Guerrero to have the Jacob catheter removed in the office. (3) Syncope: Status: Resolved Asessment and Plan: patient had a vasovagal episode while up to bedside commode; associated w/ hypotension but no arrhythmias and no seizures. improved after iv fluid boluses. Discharge Plan Disposition Patient Disposition: HOME Condition: Good Discharge Details Reason For Visit: URINARY RETENTION, IMMUNOCOMPROMISE, SHINGLES Admit Date/Time: 10/19/20 21:48 Admit Provider: Maynor Sanchez Attending Provider: Maynor Sanchez [facility] Hospital Course: 65-year-old male with a prior history of BPH status post TURP, AML status post stem cell transplant, recently diagnosed with herpes zoster involving the right buttock and scrotum and perineum now presented to the emergency department with acute urinary retention after a failed attempt at placement of Jacob catheter while at [facility]. Patient had a catheter placed in the emergency department via coud? catheter. He had immediate urinary output of [address] Kyle Finley, emergency room attending, spoke with [facility] oncology fellow on-call who advised that the patient be admitted for IV acyclovir to the patient's immune compromised state related to prior AML and stem cell transplant. Diagnostic work-up includes a CBC, BMP, urinalysis, and urine culture. Urinalysis appear to be slightly cloudy with 30 mg/dL of protein with large amount of blood and trace leukocyte Estrace and greater than 50 white cells. There was moderate bacteria and rare epithelial cells. Repeat urinalysis was done the next day and continue to show moderate amount leukocyte esterase with only 3-5 red cells and 5-10 white cells with a few bacteria. Patient's initial urine culture from admission demonstrated less than 10,000 colonies of gram-positive aundrea. Repeat cultures pending at this time. Patient was treated with fosfomycin 3 g x 1 dose. He was put on IV acyclovir 700 mg IV every 12 hours. It was expected that he would be discharged the next day however he had a syncopal spell while sitting up on the bedside commode. This was felt to be a vasovagal episode. Initially it was unclear as to whether was a seizure or syncopal spell but upon further questioning of the nurse the patient was determined that this is a syncopal event probably related to transient drop in his blood pressure. Further diagnostic testing regarding his syncopal spell include a repeat CBC which showed a stable white count of 8900 and a stable hemoglobin at 13.1 g and a troponin level that was less than 0.05 and a normal prolactin level at 10.2 with stable renal function with chronic renal insufficiency with a BUN of 30 creatinine 1.6. He is transient hypotension with a systolic pressure in the low to mid 90s was treated with IV fluids and was kept overnight for observation. An EEG was performed because of his history of seizure disorder and this showed no epileptiform activity. Patient had no further syncope or near syncopal spells. He is being discharged home to continue his valacyclovir that he was started on as outpatient. We will extend treatment for another week. He still has multiple vesicular lesions over the perineum and scrotum and proximal medial thigh as well as the penis. He has a prescription for gabapentin and he was placed on gabapentin 300 mg 3 times a day while he was in the hospital. Patient was seen by Dr. Guerrero in urology consultation. See his note for details. He indicated that the patient can leave the jacob catheter in for up to a month. He indicated that he would follow up w/ the patient and remove the catheter once his zoster vesicles have healed and his perineal swelling improves. Home Meds and New Rx's Prescriptions: Continued gabapentin 300 mg capsule 300 mg PO TID PRN (Reason: shingles) Qty: 30 RF: 0 Eliquis 5 mg tablet 5 mg PO BID RF: 0 cholecalciferol (vitamin D3) 125 mcg (5,000 unit) tablet 125 mcg PO DAILY RF: 0 multivitamin Tablet 1 tab PO DAILY RF: 0 zonisamide [Zonegran] 100 mg capsule 200 mg PO HS Qty: 180 RF: 3 valacyclovir 1 gram tablet 1,000 mg PO TID Qty: 21 RF: 0 Discharge Instructions Instructions: Urinary Retention in Men (ED), Shingles (DC), How to Change a Catheter Drainage Bag (DC) Referrals: Solomon Atwood [Primary Care Provider] - 10/29/20 10:00 am (Follow up appointment with Valerio Carlson on 10/29/20 @ 1000.) Maurice Guerrero MD [ [facility] STAFF PHYSICIAN] - 11/17/20 8:30 am (Follow up with Dr. Guerrero on November 17 at 0830. Nacho will call and make an earlier appointment if his perineal pain improves.) Activity:: Activity as Tolerated Equipment/Supplies:: No Equipment Needed Diet:: Normal Diet Discharge Orders Discharge Orders: Discharge Order (Routine); Ordered 10/22/20 Ordered By: Dawit Garcia DS: Summary Time Spent with Patient providing and/or coordinating discharge services: Less than 30 minutes Status at Discharge Functional status at discharge: independent ambulation Overall status at discharge: patient is progressing back to baseline Mental Status: mental status grossly normal Speech and Movement: speech and movement normal Mood: congruent mood Affect: normal affect Exam Narrative Exam Narrative: Late middle-aged white male alert and oriented person place time circumstance ambulating around the room with no dizziness or lightheadedness. I did not examine his zoster lesions today. He says they are doing better today. I did answer some questions regarding routine skin care. Suggesting he obtain some nonperfumed baby wipes to help keep his perineum clean after bowel movements and suggest that he get a hand-held shower head so that he can properly douche. Psych Mental Status: mental status grossly normal Speech and Movement: speech and movement normal Mood: congruent mood Affect: normal affect DS: Data Vitals/I&O Vitals and I&O: Vital Signs Temperature 36.4 C L 10/21/20 20:30 Temperature Source Temporal Artery Scan 10/21/20 20:30 Pulse 66 10/21/20 20:07 Pulse Rhythm Regular 10/21/20 20:30 Respiratory Rate 18 10/20/20 23:38 Respiratory Effort Non-Labored 10/21/20 20:30 Respiratory Depth Normal 10/21/20 16:00 Respiratory Pattern Normal 10/21/20 16:00 Blood Pressure 125/74 10/21/20 20:07 Blood Pressure Mean 85 10/21/20 20:07 Blood Pressure Position Supine 10/19/20 23:26 Pulse Oximetry 98 10/21/20 20:12 Oxygen Delivery Method Room Air 10/21/20 20:30 Oxygen Flow Rate 0 10/21/20 20:30 Pain Level 6 10/22/20 06:56 Intake & Output 10/21/20 10/21/20 10/22/20 11:59 23:59 11:59 Intake Total 740 / 2840 2100 / 2840 1600 / 1600 Output Total 650 / 1450 800 / 1450 3575 / 3575 Balance 90 / 1390 1300 / 1390 -1974 / -1974 Weight 69.2 kg Intake: IV 500 / 2500 2000 / 2500 1200 / 1200 Oral 240 / 340 100 / 340 400 / 400 Output: Urine 650 / 1450 800 / 1450 3575 / 3575 Other: Urine Color Pale Yellow Yellow Yellow Straw Urine Appearance Clear Clear Clear Comment patient performs self care Stool Size Moderate Stool Characteristics Soft Formed Brown Data Completed and Pending Labs on day of discharge: Labs from last 24 hours 10/21/20 10/21/20 10/21/20 13:00 11:50 11:50 WBC RBC Hgb Hct MCV MCH MCHC RDW Plt Count MPV Immature Gran % Neutrophils % Lymphocytes % Monocytes % Eosinophils % Basophils % Nucleated RBC % Absolute Neutrophils Absolute Lymphocytes Absolute Monocytes Absolute Eosinophils Absolute Basophils Sodium Potassium Chloride Carbon Dioxide Anion Gap BUN Creatinine Estimated GFR/1.73 m2 Glucose Calcium Troponin I Prolactin 10.2 Urine Color Yellow Urine Clarity Sl cloudy Urine pH 7.5 Ur Specific [place] 1.020 Urine Protein Negative Urine Ketones Negative Urine Blood Trace-lysed H Urine Nitrite Negative Urine Bilirubin Negative Urine Urobilinogen 0.2 Ur Leukocyte Esterase Moderate H Urine RBC 3-5 H Urine WBC 5-10 Ur Epithelial Cells Negative Urine Crystals Negative Urine Bacteria Few Urine Casts Negative Urine Mucus Negative Ur Culture Indicated? Yes Urine Glucose Negative Patient ABO/Rh Pending 10/21/20 10/21/20 11:50 11:50 WBC 8.95 RBC 4.36 Hgb 13.1 L Hct 39.1 L MCV 89.7 MCH 30.0 MCHC 33.5 RDW 12.8 Plt Count 210 MPV 9.8 Immature Gran % 0.1 Neutrophils % 24.0 Lymphocytes % 67.2 Monocytes % 7.2 Eosinophils % 1.2 Basophils % 0.3 Nucleated RBC % 0 Absolute Neutrophils 2.15 Absolute Lymphocytes 6.01 H Absolute Monocytes 0.64 Absolute Eosinophils 0.11 Absolute Basophils 0.03 Sodium 137 Potassium 3.5 Chloride 103 Carbon Dioxide 23.6 Anion Gap 10.4 BUN 30 H Creatinine 1.6 H Estimated GFR/1.73 m2 43.60 Glucose 130 H Calcium 8.8 Troponin I < 0.05 Prolactin Urine Color Urine Clarity Urine pH Ur Specific [place] Urine Protein Urine Ketones Urine Blood Urine Nitrite Urine Bilirubin Urine Urobilinogen Ur Leukocyte Esterase Urine RBC Urine WBC Ur Epithelial Cells Urine Crystals Urine Bacteria Urine Casts Urine Mucus Ur Culture Indicated? Urine Glucose Patient ABO/Rh 10/21/20 13:00 Urine - Reflex from Urine Culture - Pending Preliminary micro results at discharge 10/21/20 13:00 Urine Culture - Pending Urine - Reflex from [facility] Medical History (Updated 10/22/20 @ 09:44 by Dawit Garcia) BPH (benign prostatic hyperplasia) Epilepsy HTN (hypertension) Surgical History (Updated 10/20/20 @ 00:14 by Maynor Sanchez) Colonoscopy - IV Sedation (07/10/16) Excision, Lipoma (~1972) H/O bone marrow transplant Nasal septoplasty (~1989) S/P TURP TONGUE SURGERY (~1969) Family History Mother , age 85 Essential hypertension AAA (abdominal aortic aneurysm) Heart disease PACEMAKER~2006 Basal cell carcinoma of nose Stroke Father , 80s Myocardial infarction Maternal Grandfather Bright's disease Paternal Grandfather Myocardial infarction Maternal Grandmother Diabetes Paternal Grandmother Breast cancer Son Depression For a time [id number] Son Alcohol abuse While going through divorce, not at present Social History (Updated 10/20/20 @ 01:47 by Maynor Sanchez) Smoking/Tobacco Use Status: Never Second Hand Exposure: Yes (As a child, both parents smoked) Smoking risk assessment performed?: Yes Alcohol Intake: current Alcohol Intake frequency: holidays/special occasions only Alcohol type: wine Drug use: Never Substance use type: does not use Caregiver/Support person: No Household members: none Housing: house Communication Needs: Corrective Lenses Do you need help understanding health information?: Rarely current occupation: METEOROLOGIST Pets and animals: No Sexually active: No Do you think of yourself as: straight/heterosexual Current gender identity: male What is your relationship status?: How often do you talk on the phone with friends or family?: three or more times per week How often do you get together with friends or relatives?: never How often do you attend jew or protestant services?: decline to answer Do you belong to any clubs or organized social groups?: yes Panel score (0-1 are the most socially isolated patients): 2 What type of physical activity do you participate in: other Details: Exercise bike Duration: 15-30 minutes/day Frequency: 3-4 times per week Jeanine/Adventist: Agnostic Special jeanine needs: No Seatbelt use: always Drive intox or ride w/intox wedding transportation driver: No Additional Social history: Formerly on [employer], 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
[2020-10-22] MEDS: ACYCLOVIR SODIUM 700 MG in Normal Saline 250 ML 250 MG IVPB (10:43)
[2020-10-22 13:13] VITALS: BP 117/63; PULSE 73
[2020-10-22] MEDS: Heparin 500 UNITS/5 ML SYRINGE IV (14:03)
[2020-10-22] MEDS: Normal Saline Flush 10 ML SYR IVP (14:04)
--- NOTE | 2020-10-22 16:39 | PDOC.CMDIS ---
- If Service Date Differs Date of service: 10/22/20 Time of Service: 16:39 LACE Index Scoring Tool - Questions: Length of Stay (in days): 3 Acuity (Admit via E.D.?): Yes Comorbidities: Any Tumor, Liver or Renal Disease E.D. Visits: 1 - Answers: Total Score: 12 Risk of Readmission: High Risk Care Management Discharge Reason for Hospitalization: Urinary Retention, shingles Discharge Plan: Nacho will return home with no services at this time. He will be driven home via private vehicle by family. He will follow up with Urology, his PCP, and discharge plan of care. Patient/Family Education Needs: Review discharge instructions regarding catheter care, medications and acitivity. Discussion of self care needs including ask me three.
--- NOTE | 2020-10-23 21:45 | NUR.NOTE ---
Nursing Note: pt's eye glasses found on nursing desk 10/23 2129. Pt's cell number collected from chart and note to call pt in the AM to report eyeglasses at [facility] left for day shift.
== END 2020-10-22 14:35 | disposition home or self-care (01) | DRG 696 ==
LOC: ER 23:34 → ICU 23:54
PROVIDERS: Internal Medicine; Admitting Provider Family Medicine; Emergency Provider Student in an Organized Health Care Education/Training Program; PCP Family Medicine; Visit Provider Family Medicine
DX: R33.8 Other retention of urine (principal); Z94.81 Bone marrow transplant status; B02.8 Zoster with other complications; N18.30 Chronic kidney disease, stage 3 unspecified; G40.909 Epilepsy, unspecified, not intractable, without status epilepticus; I12.9 Hypertensive chronic kidney disease with stage 1 through stage 4 chronic kidney disease, or unspecified chronic kidney disease; Z85.6 Personal history of leukemia; R55 Syncope and collapse; Z20.822 Contact with and (suspected) exposure to COVID-19
CPT/HCPCS: 36415; 36591; 51703; 80048; 86900; 86901; 87077; 87635; 95819; 96365; 99222; 99231; 99232; 99238; 99253; 99285; 81003; 81015; 84146; 84484; 85025; 87086; 87186; 93005; 93010; J0133; J3490

== ENCOUNTER → 2020-10-21 13:00 | Outpatient (BNVA) | payer OTHER, SELFPAY | PROVIDERS: PCP Family Medicine; Referring Provider Family Medicine; Visit Provider Psychiatry & Neurology Neurology ==

== ENCOUNTER → 2020-10-22 10:28 | Outpatient (BNVA) | payer OTHER, SELFPAY | PROVIDERS: PCP Family Medicine; Referring Provider Family Medicine; Visit Provider Psychiatry & Neurology Neurology ==

== ENCOUNTER → 2020-11-02 08:34 | Outpatient (BNVA) | payer OTHER, SELFPAY | PROVIDERS: PCP Family Medicine; Referring Provider Family Medicine; Visit Provider Nurse Practitioner Gerontology | DX: R33.8 Other retention of urine (principal); Z46.6 Encounter for fitting and adjustment of urinary device | CPT/HCPCS: 51702; 99215 ==

== ENCOUNTER → 2020-11-09 08:07 | Outpatient (BNVA) | payer OTHER, SELFPAY | PROVIDERS: PCP Family Medicine; Referring Provider Family Medicine; Visit Provider Nurse Practitioner Gerontology | DX: R33.8 Other retention of urine (principal) | CPT/HCPCS: 81003; 99215 ==

== ENCOUNTER 2020-11-09 14:28 | Outpatient (REF) | payer OTHER, SELFPAY | END 2020-11-09 14:29 | disposition home or self-care (01) | LOC: LBN 14:28 | PROVIDERS: PCP Family Medicine; Visit Provider Nurse Practitioner Gerontology | DX: R30.0 Dysuria (principal) | CPT/HCPCS: 87077; 87086; 87186 ==

== ENCOUNTER → 2020-11-15 09:02 | Outpatient (BNVA) | payer OTHER, SELFPAY | PROVIDERS: PCP Family Medicine; Referring Provider Family Medicine; Visit Provider Nurse Practitioner Gerontology | DX: R33.8 Other retention of urine (principal); N39.0 Urinary tract infection, site not specified | CPT/HCPCS: 99213 ==

== ENCOUNTER → 2020-12-06 08:08 | Outpatient (BNVA) | payer OTHER, SELFPAY | PROVIDERS: PCP Nurse Practitioner Family; Referring Provider Family Medicine; Visit Provider Nurse Practitioner Gerontology | DX: R33.8 Other retention of urine (principal); N39.0 Urinary tract infection, site not specified; N52.9 Male erectile dysfunction, unspecified | CPT/HCPCS: 81003; 99214 ==

== ENCOUNTER 2020-12-07 03:34 | Outpatient (CLI) | payer OTHER, SELFPAY ==
[2020-12-07 13:06] LABS: Hemoglobin A1C 5.9 % (<5.7)
[2020-12-07 13:22] LABS: Calculated LDL 140 mg/dL (<100); Cholesterol 225 mg/dL (<200); HDL Cholesterol 65 mg/dL (40-60); Triglyceride 102 mg/dL (<150)
== END 2020-12-07 03:35 | disposition home or self-care (01) ==
LOC: LOS 03:34
PROVIDERS: PCP Nurse Practitioner Family; Visit Provider Nurse Practitioner Family
DX: R73.09 Other abnormal glucose (principal); E78.2 Mixed hyperlipidemia
CPT/HCPCS: 36415; 80061; 83036

== ENCOUNTER → 2021-03-14 15:22 | Outpatient (BNVA) | payer MEDICARE, SELFPAY | PROVIDERS: PCP Nurse Practitioner Family; Visit Provider Nurse Practitioner Gerontology | DX: R33.8 Other retention of urine (principal); N39.0 Urinary tract infection, site not specified; N52.9 Male erectile dysfunction, unspecified; N40.1 Benign prostatic hyperplasia with lower urinary tract symptoms; N13.8 Other obstructive and reflux uropathy | CPT/HCPCS: 99213 ==

== ENCOUNTER → 2021-09-13 14:24 | Outpatient (BNVA) | payer MEDICARE, SELFPAY | PROVIDERS: PCP Nurse Practitioner Family; Referring Provider Nurse Practitioner Family; Visit Provider Nurse Practitioner Gerontology | DX: R33.8 Other retention of urine (principal) | CPT/HCPCS: 99213 ==

== ENCOUNTER 2022-07-11 12:21 | Outpatient (REF) | payer MEDICARE, SELFPAY ==
--- NOTE | 2022-07-11 11:30 | SKI_PTH ---
PATIENT: Nacho Swan LOC: [facility] U#:[id number] AGE/SX: 66/M ROOM: RE07/11/[address]: Napoleon Gann MD : 1955 BED: DIS: 07/11/2022 SPEC #: [id number] RECD: 07/11/22 17:15 STATUS: ADAN REJeovanny #: [id number] BERENICE: 07/11/22 11:[address]: Napoleon Gann DEPT: Surgical Specimen RECD BY: Dara Juárez ENTERED: 07/11/22 17:15 SP TYPE: DIEGO BARDALES DR: Valerio Carlson, CARLOS ALBERTO Tissues: 1 - SKIN BIOPSY(SHAVE/PUNCH) Procedures: SKIN LEVEL 4 Comments: [id number]
== END 2022-07-11 12:22 | disposition home or self-care (01) ==
LOC: LBN 12:21
PROVIDERS: PCP Nurse Practitioner Family; Visit Provider Otolaryngology
DX: L57.0 Actinic keratosis (principal)
CPT/HCPCS: 88305

== ENCOUNTER 2022-10-31 05:00 | Outpatient (CLI) | payer MEDICARE, SELFPAY ==
[2022-10-31 11:17] LABS: CREATININE 1.7 mg/dL (0.70-1.30); Estimated GFR 43.64 (mL/min/1.73m2)
== END 2022-10-31 05:01 | disposition home or self-care (01) ==
PROVIDERS: PCP Nurse Practitioner Family; Visit Provider Nurse Practitioner Family
DX: I10 Essential (primary) hypertension (principal)
CPT/HCPCS: 36415; 82565; 84132

== ENCOUNTER 2023-06-22 15:26 | Outpatient (REF) | payer MEDICARE, SELFPAY ==
--- NOTE | 2023-06-22 14:20 | SKI_PTH ---
PATIENT: Nacho Swan LOC: [facility] U#:[id number] AGE/SX: 67/M ROOM: RE06/22/[address]: TYSHAWN Chaidez : 1955 BED: DIS: 06/22/2023 SPEC #: [id number] RECD: 06/26/23 12:43 STATUS: ADAN BLANK #: [id number] BERENICE: 06/22/23 14:[address]: John Bee DEPT: Surgical Specimen RECD BY: Dara Juárez ENTERED: 06/26/23 12:44 SP TYPE: DIEGO BARDALES DR: Valerio Carlson, SALES AND SERVICE SPECIALIST Tissues: 1 - SKIN BIOPSY(SHAVE/PUNCH) Procedures: SKIN LEVEL 4 Comments: [id number]
== END 2023-06-22 15:27 | disposition home or self-care (01) ==
LOC: LBN 15:26
PROVIDERS: PCP Nurse Practitioner Family; Visit Provider Physician Assistant
DX: L57.0 Actinic keratosis (principal)
CPT/HCPCS: 88305

== ENCOUNTER 2024-01-02 02:51 | Outpatient (CLI) | payer MEDICARE, SELFPAY ==
--- NOTE | 2024-01-02 20:43 | W.NUTRFU ---
Date of service: 01/02/24 Time of Service: 10:00 Nutrition Note NOTE: Nacho comes in for referred nutrition appt regarding weight mgt. Patient is 68yo and his weight was 77.111kg on 12/23. He is 67 tall with z current BMI of 26.6kg/m2. 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 He has HTN and HLD as well. 2020 had an A1C that was 5.9. He reports no food allergies except avocado gives him diarrhea since his transplant. He is a self-reported lover of food. Takes MVI and says he stopped taking n-3 fish oil pills when put on Eliquis for DVT prohylaxis but wonders if he still needs to be on this and will bring it up with his provider. He did provide a 7 day diet recall which was very helpful. Has been eating 3 meals - trying not to snack. He does seem to have a lower protein intake than I would suggest, with breakfast meal averaging closer to 10-15 grams where I would prefer closer to 30g per meal. Also asses his average day to be under 20g fiber Not a big intake of sweets - some diet soda but between jelly, breakfast cereal, yogurt there could be a little more added sugar than I would recommed to meet his weight loss goal (he would like to see 150-155lbs) Nutrition Dx: Inadequate fiber intake (NI-5.8.5) Intervention: -Supported taking triglyceride form fish oil up to 3g per day due low risk of blood thinner interactions/excessive bleeding. -gave some food as medicine recommendations for HTN and HLD such as eating 1/2 cup beans 3 times per week to daily, eat beets often, greens, 1 clove garlic most days, berries, green and hibiscus tea, 1-2 brazil nuts daily (for added selenium) -reviewed goals for minimum of 25 g fiber and max of 25g added sugar as part of a total carb goal of 180g, along with 90-100g protein (with emphasis on plant protein) -we reviewed estimated total carbohydrate and sources of starches/sugars to keep portion sizes smaller and choose less refined choies -we reviewed some sample menu/strategies for menu planning Monitoring: gave pt my card to contact if needing any further materials, has any questions, or desires follow up Time Spent in Nutritional Counseling and Treatment: 30 minutes
== END 2024-01-02 02:52 | disposition home or self-care (01) ==
LOC: DS 02:51
PROVIDERS: PCP Nurse Practitioner Family; Visit Provider Dietitian, Registered
DX: E66.3 Overweight (principal); I10 Essential (primary) hypertension; N18.2 Chronic kidney disease, stage 2 (mild); Z85.6 Personal history of leukemia; Z94.81 Bone marrow transplant status; Z68.26 Body mass index [BMI] 26.0-26.9, adult; Z71.3 Dietary counseling and surveillance
CPT/HCPCS: 00123; 97802

== ENCOUNTER 2024-02-08 01:05 | Outpatient (CLI) | payer MEDICARE, SELFPAY ==
[2024-02-08 12:44] LABS: Anion Gap 11.9 mmol/L (3-11); BUN 24 mg/dL (7-18); CO2 24.1 mmol/L (21.0-32.0); CREATININE 1.4 mg/dL (0.70-1.30); Calcium 9.1 mg/dL (8.5-10.1); Calculated LDL 164 mg/dL (<100); Chloride 106 mmol/L (98-107); Cholesterol 252 mg/dL (<200); Estimated GFR 54.75 (mL/min/1.73m2); Glucose 100 mg/dL (74-106); HDL Cholesterol 69 mg/dL (40-60); Potassium 3.6 mmol/L (3.5-5.1); Sodium 142 mmol/L (136-145); Triglyceride 98 mg/dL (<150)
== END 2024-02-08 01:06 | disposition home or self-care (01) ==
LOC: LOS 01:05
PROVIDERS: PCP Nurse Practitioner Family; Visit Provider Nurse Practitioner Family
DX: E78.2 Mixed hyperlipidemia (principal); N18.2 Chronic kidney disease, stage 2 (mild)
CPT/HCPCS: 36415; 80048; 80061

== ENCOUNTER → 2024-03-28 09:57 | Outpatient (BNVA) | payer MEDICARE, SELFPAY | PROVIDERS: PCP Nurse Practitioner Family; Referring Provider Nurse Practitioner Family; Visit Provider Physical Therapy Assistant | DX: Z12.11 Encounter for screening for malignant neoplasm of colon (principal) ==

== ENCOUNTER 2024-04-07 09:05 | Day surgery (SDC) | payer MEDICARE, SELFPAY ==
--- NOTE | 2024-04-06 13:21 | W.PM.DSUDISC ---
Date of service: 04/07/24 Time of Service: 10:19 Discharge Plan Disposition Patient Disposition: Home Condition: Good Discharge Details Reason For Visit: screening colonoscopy Attending Provider: Tank Mcfadden Primary Care Provider: Valerio Carlson Home Meds and New Rx's Prescriptions: Continued multivitamin Tablet 1 tab PO DAILY losartan 25 mg tablet 25 mg PO DAILY Qty: 90 3RF zonisamide [Zonegran] 100 mg capsule 200 mg PO HS Qty: 180 3RF Eliquis 5 mg tablet 5 mg PO BID Qty: 180 3RF Discontinued bisacodyl [Dulcolax (bisacodyl)] 5 mg tablet,delayed release (DR/EC) 5 mg PO ONCE Qty: 4 0RF Rx Instructions: Take per colonoscopy instructions provided by ordering providers office polyethylene glycol 3350 17 gram/dose powder 17 g PO ONCE Qty: 238 0RF Rx Instructions: Take per colonoscopy instructions provided by ordering providers office Discharge Instructions Additional Instructions: Nacho, we are able to complete your colonoscopy today without any difficulty. Your prep was excellent and I could see everything fine. I did not see any tumors, polyps, or anything else worrisome. Incidentally, you do have a few scattered diverticula. Diverticula are little weak spots in the muscular part of the colon wall. Most of us accumulate them as we age. The condition of having these inside is called diverticulosis, and I find them during most colonoscopies that I do. Majority of my patients are asymptomatic. The most common symptom that the patient may encounter with this is pain. It usually occurs on the left side of the abdomen, or down across the middle. These episodes of inflammation are referred to as diverticulitis and often times, they are treated with antibiotics. I hope your diverticula never bother you. There is no consensus regarding interval screening colonoscopies for patients with a history of adenomatous polyps, and then a few consecutive negative colonoscopies. Some patients prefer to go back to 10-year screening intervals, while others continue screening every 5 years. There is not really a right or wrong answer. If you have any questions at all, please do not hesitate to ask. 1. If tolerated, consume a soft, low fiber diet for 1-2 days. 2[address] Do not drive, drink alcohol, operate machinery, make critical decisions, or do activities that require coordination or balance for 24 hours. 3. Because air was put into your colon during the procedure, expelling air from your rectum (passing gas or farting) is normal. 4. You may not have a bowel movement for 1-3 days because of the colonoscopy prep. This is normal. 5. Go directly to the emergency room if you notice any of the following: Develop chills (warm to touch), or if you have a thermometer and your temperature is above 101 Difficulty breathing or difficultly swallowing Persistent vomiting Severe abdominal pain, other than gas cramps Severe chest pain Black, tarry stools Any bleeding ? exceeding one tablespoon 6. Call your physician if the site where your intravenous was started becomes red, swollen, painful, and warm to touch. 7. Your physician has reviewed your pre-procedure medications. Please continue to take those medications as previously ordered. You will be given specific information/education regarding any changes to your medications before leaving. Activity:: Activity as Tolerated Diet:: As Tolerated Discharge Orders Discharge Orders: Discharge Order (Routine); Ordered 04/06/24 Ordered By: Tank Mcfadden DS: Diagnosis Discharge Diagnosis (1) Encounter for screening colonoscopy: Status: Acute Asessment and Plan: Negative screening colonoscopy
--- NOTE | 2024-04-06 13:22 | W.COLOREPORT ---
Date of service: 04/07/24 Time of Service: 10:23 Colonoscopy Report Date of procedure: 04/07/24 Pre-op diagnosis general: screening colonoscopy Post-op diagnosis procedure note: other (Negative screening colonoscopy) Procedure: colonoscopy Surgeon: Tank Mcfadden Anesthesia Type: General:No Airway Estimated blood loss (mL): 0 Pathology: none sent Complications: None Disposition: same day Indications: Nacho is a 68 year old man with a history of adenomatous polyps who needs his next screening colonsocopy Prep: Miralax/Dulcolax Procedure Start Time: 09:59 Procedure End Time: 10:13 Retraction Time: 10 Findings: Occasional diverticula Procedure Description: After the induction of anesthesia, and with the patient in left lateral decubitus position, I began by performing an external anorectal exam.? Perineum and skin were normal, as was the anal verge.? There was no evidence of external hemorrhoids.? Next, I performed a digital rectal exam.? I did not appreciate any abnormal findings.? Next, I advanced a colonoscope into the rectal vault.? I performed retroflexion.? This appeared normal. using insufflation, I then advanced the colonoscope beyond the rectal folds and into the sigmoid colon before advancing towards the cecum.? There were some occasional diverticula scattered along the length of the colon..? The scope was noted to be in the cecum by identification of the ileocecal valve and appendiceal orifice.? I then began withdrawing the colonoscope using repeated irrigation as necessary for full evaluation of the colonic mucosa. ?Once the scope was withdrawn to the level of the rectum, great care was taken to examine portions of the rectal folds.? I saw no signs of tumors, polyps, or any other worrisome pathology. Finally, the scope was withdrawn and the patient was brought to the same-day surgery recovery unit as the anesthetic wore off. ?The findings and instructions were shared with the patient prior to discharge. [place] Bowel Prep [place] Bowel Prep Right Colon: 2 Left Colon: 3 Transverse Colon: 3 Total Score: 8
[2024-04-07 09:10] VITALS: BP 171/87; PULSE 79; RESP 16; TEMP 36.6; O2SAT 97
[2024-04-07] MEDS: Lactated Ringers 1,000 ML 80 ML IV (09:40)
[2024-04-07 09:44] VITALS: BMI 26.4
--- NOTE | 2024-04-07 09:44 | W.ANESPRE ---
General Info Date of Service Date Performed: 04/07/24 Height: 5 ft 7 in Weight: 76.4 kg Body Mass Index (BMI): 26.4 Surgical Procedure: Operation Date: 04/07/24 09:50 Proposed Procedure Side Surgeon mylene Mcfadden MD Meds Allergies and Home Medications Allergies Allergy/AdvReac Type Severity Reaction Status Date / Time lisinopril Allergy Mild rash Verified 04/07/24 09:25 Penicillins Allergy Unknown as a child Verified 04/07/24 09:25 sulfamethoxazole (From Allergy rash Verified 04/07/24 09:25 Bactrim) trimethoprim (From Bactrim) Allergy rash Verified 04/07/24 09:25 codeine AdvReac Severe LOWERS Verified 04/07/24 09:25 SEIZURE THRESHOLD Home Medication ?Medication ?Instructions ?Recorded multivitamin 1 tab PO DAILY 04/29/20 losartan 25 mg tablet 25 mg PO DAILY #90 tabs 08/22/23 zonisamide 100 mg capsule 200 mg (2 x 100 mg) PO HS #180 11/21/23 (Zonegran) tab-caps apixaban 5 mg tablet (Eliquis) 5 mg PO BID #180 tabs 02/20/24 Current Visit Medications: Current Medications Generic Name Dose Route Start Last Admin Trade Name Freq PRN Reason Stop Dose Admin Ringer's Solution 1,000 mls @ 80 mls/hr 04/07/24 06:00 04/07/24 09:40 IV 05/04/24 23:59 80 mls/hr INFUSION ELOISA Administration IV Miscellaneous Supplies 1 each 04/07/24 06:00 Iv Access IV 05/04/24 23:59 DIRECTED ELOISA Ondansetron HCl 4 mg 04/06/24 13:23 Ondansetron 4 Mg/2 Ml Vial IVP 05/06/24 13:22 Q4H PRN PRN Nausea / Vomiting Sodium Chloride 0 ml 04/07/24 06:00 Normal Saline Flush 10 Ml Syr IV 05/04/24 23:59 PRN PRN Sodium Chloride 0 ml 04/07/24 06:00 Normal Saline 10 Ml Vial IJ 05/04/24 23:59 DIRECTED PRN Sterile Water 0 ml 04/07/24 06:00 Water,Injection,Sterile 10 Ml Vial IJ 05/04/24 23:59 DIRECTED PRN PFSH Active Problems Active Problems: Problem Status Onset Code Encounter for screening colonoscopy Acute Z12.11 Overweight Acute E66.3 Overweight Acute E66.3 Left knee pain Acute M25.562 Skin rash Acute R21 Actinic keratoses Acute L57.0 Actinic keratosis Acute L57.0 Scalp wound Acute S01.00XA History of basal cell carcinoma Acute Z85.828 Abnormal skin growth Acute D49.2 Skin lesion Acute L98.9 Lipoma Acute D17.9 Bilateral high frequency sensorineural hearing loss Acute H90.3 Tinnitus of both ears Acute H93.13 Elevated hemoglobin A1c Acute R73.09 Hyperlipidemia Acute E78.5 Erectile dysfunction Acute N52.9 DVT prophylaxis Acute Z29.9 Herpes zoster Acute B02.9 Skin cancer, basal cell Resolved C44.91 CKD (chronic kidney disease) Acute N18.9 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 Last epileptic seizure 2018 (r/t to electrolytes being flushed out) BPH (benign prostatic hyperplasia) Surgical History Surgical History (Updated 04/07/24 @ 09:27 by Vale Mcfadden RN) Hx of esophagogastroduodenoscopy Status post nasal septoplasty Status post excision of lipoma H/O bone marrow transplant S/P TURP TONGUE SURGERY (~1969) 13 years old small polyp on front of tongue Nasal septoplasty (~1989) Excision, Lipoma (~1972) Colonoscopy - IV Sedation (07/10/16) Tobacco Smoking/Tobacco Use Status: Never Passive smoking exposure: Yes Second hand exposure: Yes (As a child, both parents smoked) Alcohol Alcohol Intake: current Alcohol intake frequency: holidays/special occasions only Alcohol type: wine Substance Use Substance use: Never Substance use type: does not use Vital Signs and Lab Results Vital Signs Most Recent Vital Signs in EMR: Most Recent Vital Signs Temp Pulse Resp BP Pulse Ox 36.6 C 79 16 171/87 H 97 04/07/24 09:10 04/07/24 09:10 04/07/24 09:10 04/07/24 09:10 04/07/24 09:10 Lab Results Blood Type / Crossmatch: No Data to Display Complete Blood Count: No Data to Display Complete Metabolic Panel: No Data to Display Liver Function Panel: No Data to Display Coagulation Panel: No Data to Display Cardiac Panel: No Data to Display Arterial Blood Gas: No Data to Display Venous Blood Gas: No Data to Display Pancreas Panel: No Data to Display Thyroid Panel: No Data to Display Infectious Disease: No Data to Display Blood Cultures: No Data to Display Toxicology Panel: No Data to Display Anesthesia Assessment and Plan Anesthesia History Personal History: No History of Anesthesia Complications Family History: Family History Unknown Exercise Tolerance Exercise Tolerance: Metabolic Equivalents>4 Pertinent Negatives Pertinent Negatives: No Symptoms of GERD Cardiac & Pulmonary Exam Cardiac Exam: Normal S1/S2 Heart Sounds Pulmonary Exam: Clear Bilateral Breath Sounds Implantable Cardiac Device Does patient have a Pacemaker or an ICD?: No Airway Exam Known Difficult Airway: No Mallampati Class: 2 Mouth Opening: Normal (> 3cm) Thyromental Distance: Greater than 3 cm Neck Range of Motion: Full ROM Neck Circumference: Normal Teeth Condition: Normal Dentition ASA Classification ASA Score: ASA 2 Emergency Case?: No NPO Status NPO Status: NPO Clears >2 hours, Solids >8 hours Anesthesia Plan Resuscitation Status: Full Code Anesthesia Technique: General Anesthesia Airway Planned: Natural Airway Monitors Used: Standard Monitors
[2024-04-07 10:16] VITALS: BP 99/67; PULSE 66; RESP 16; TEMP 36; O2SAT 94
--- NOTE | 2024-04-07 10:25 | W.ANESPOSTOP ---
Postoperative Evaluation Date, Time and Location Date Performed: 04/07/24 Time Performed: 10:25 Patient Location: Day Surgery Unit Vital Signs Most Recent Imported Vital Signs: Most Recent Vital Signs Temp Pulse Resp BP Pulse Ox 36.6 C 79 16 171/87 H 97 04/07/24 09:10 04/07/24 09:10 04/07/24 09:10 04/07/24 09:10 04/07/24 09:10 Pain Score Most Recent Pain Score: Most Recent Pain Score Pain Level 0 04/07/24 09:10 Assessment Mental Status: Awake (Alert & Oriented to Patient Baseline) Airway and Respiratory Function: Patent airway with normal (patient baseline) respiratory exam Cardiovascular Function: Hemodynamically Stable Hydration Status: Adequately Hydrated Nausea & Vomiting: No Nausea or Vomiting Pain: Pt. Denies Any Pain Peripheral Nerve Block: Patient did not receive a nerve block
[2024-04-07 10:48] VITALS: BP 145/82; PULSE 68; RESP 16; TEMP 36.3; O2SAT 99
== END 2024-04-07 11:18 | disposition home or self-care (01) ==
LOC: SUR 09:05
PROVIDERS: PCP Nurse Practitioner Family; Visit Provider Surgery
PROC: 0DJD8ZZ Inspection of Lower Intestinal Tract, Via Natural or Artificial Opening Endoscopic (ICD-10-PCS; CPT 45378; principal; 2024-04-07 09:45)
DX: Z12.11 Encounter for screening for malignant neoplasm of colon (principal)
CPT/HCPCS: G0105; J2003; J2704

== ENCOUNTER 2024-12-25 10:03 | Outpatient (CLI) | payer MEDICARE, SELFPAY ==
[2024-12-25 11:30] LABS: Anion Gap 8.1 mmol/L (3-11); BUN 32 mg/dL (7-18); CO2 28.9 mmol/L (21.0-32.0); CREATININE 1.2 mg/dL (0.70-1.30); Calcium 9.2 mg/dL (8.5-10.1); Calculated LDL 156 mg/dL (<100); Chloride 104 mmol/L (98-107); Cholesterol 245 mg/dL (<200); Estimated GFR 65.46 (mL/min/1.73m2); Glucose 76 mg/dL (74-106); HDL Cholesterol 66 mg/dL (>or=40); Potassium 3.7 mmol/L (3.5-5.1); Sodium 141 mmol/L (136-145); Triglyceride 117 mg/dL (<150)
[2024-12-25 22:39] LABS: PSA, Screening 33.1 ng/mL (<=4.5)
== END 2024-12-25 10:04 | disposition home or self-care (01) ==
LOC: LBO 10:03
PROVIDERS: PCP Nurse Practitioner Family; Visit Provider Nurse Practitioner Family
DX: Z13.6 Encounter for screening for cardiovascular disorders (principal); Z12.5 Encounter for screening for malignant neoplasm of prostate; Z13.1 Encounter for screening for diabetes mellitus
CPT/HCPCS: 36415; 80048; 80061; 84153